=== PATIENT | male | born 1945 | race Caucasian/White ===

== ENCOUNTER 2018-11-20 13:14 | Inpatient (IN) ==
[2018-11-20] MEDS ORDERED: SODIUM CHLORIDE 0.9% 1,000 ML IV STA (13:34)
[2018-11-20] MEDS ORDERED: MEROPENEM 1,000 MG in SODIUM CHLORIDE 0.9% 100 ML IV STA (13:34)
[2018-11-20 14:32] LABS: Basophils # 0.1 10*3/uL (0.0-0.2); Hematocrit 30.1 VOL% (42.0-52.0); Hemoglobin 10.3 GM/DL (14.0-18.0); Immature Granulocytes % 5.9 %; Immature Granulocytes Absolute 0.46 #; Lymphocytes # 1.5 10*3/uL (1.4-4.0); Lymphocytes % 19.3 % (21.2-54.2); Mean Corpuscular HGB Conc 34.2 GM/DL (32-36); Mean Corpuscular Hemoglobin 32 PG (27-34); Mean Corpuscular Volume 93.2 FL (87-102); Mean Platelet Volume 10.3 FL (9.6-12.0); Monocytes # 1.3 10*3/uL (0.11-0.8); Monocytes % 16.1 % (1.7-12.7); NRBC # 0.03 10*3/uL; Neutrophils # 4.5 10*3/uL (1.4-7.4); Neutrophils % 57.7 % (38.7-73.9); Platelet Count 345 T/CUMM (130-400); Red Blood Count 3.23 MC/CUMM (3.8-5.5); Red Cell Distribution Width 14.6 % (9.3-17.3); White Blood Count 7.7 T/CUMM (4-12)
[2018-11-20 14:41] LABS: INR 1.1; PT Patient Result 11.6 SECS; Partial Thromboplastin Time 22.6 SECS (0-40)
[2018-11-20 15:00] LABS: Alanine Aminotransferase 19 U/L (16-61); Albumin 2.5 G/DL (3.4-5.0); Alkaline Phosphatase 66 U/L (45-117); Aspartate Amino Transferase 52 U/L (0-37); Blood Urea Nitrogen 118 MG/DL (7-18); Glucose 139 MG/DL (74-106); Osmolality,Calculated 294.2 MOS/KG (273-304); Sodium 127 MMOL/L (136-145); Total Protein 8.2 G/DL (6.4-8.3); Troponin I < 0.015 NG/ML (0.00-0.045)
[2018-11-20 15:06] LABS: Band Neutrophils 9 % (0-10); Lymphocytes 16 % (20-55); Myelocytes 1 %; Segmented Neutrophils 54 % (50-85)
[2018-11-20 15:07] LABS: Platelet Estimate Adequate; Total Cells Counted 100
[2018-11-20] MEDS ORDERED: ZALEPLON 5 MG CAPSULE PO PRN (15:40)
[2018-11-20] MEDS ORDERED: ONDANSETRON 4 MG/2 ML VIAL IV PRN (15:40)
[2018-11-20] MEDS ORDERED: PROCHLORPERAZINE 10 MG TABLET PO PRN (15:50)
[2018-11-20] MEDS ORDERED: NITROGLYCERIN SL 0.4 MG TABLET SL PRN (15:50)
[2018-11-20] MEDS ORDERED: GLUCAGON 1 MG VIAL IM PRN (15:53)
[2018-11-20] MEDS ORDERED: DEXTROSE 50% 25 GM/50 ML SYRINGE IV PRN (15:53)
[2018-11-20 16:27] LABS: Thyroid Stimulating Hormone 0.515 uIU/ml (0.358-3.74); VLDL CHOLESTEROL 72.8 MG/DL
[2018-11-20 16:49] LABS: Barbiturates Screen,Urine Negative (Negative); Benzodiazepines Screen,Urine Negative (Negative); Cannabinoid Screen,Urine Negative (Negative); Opiate Screen,Urine Negative (Negative); Phencyclidine Screen,Urine Negative (Negative)
[2018-11-20 16:51] LABS: Apearance,Urine Slightly Hazy (Clear); Bilirubin,Urine Negative (Negative); Blood, Urine Negative (Negative); Glucose,Urine (UA) Negative (Negative); Hyaline Casts,Urine 4 /LPF (0-3); Ketones,Urine Negative (Negative); Mucus,Urine Occasional /LPF (Occasional); Nitrite,Urine Negative (Negative); Protein,Urine Negative; RBC,Urine 1 /HPF (0-4); Squamous Epithelial Cell,Urine Occasional /HPF (0-10); Urine Color Amber (Yellow); Urine Specific Gravity 1.017 (1.001-1.035); Urine Urobilinogen < 2.0 EU/DL (0.2-1.0); WBC,Urine 1 /HPF (0-6)
[2018-11-20] MEDS: SODIUM CHLORIDE 0.9% 1,000 ML IV SCH ×2 (20:01→22:24)
[2018-11-20] MEDS: GEMFIBROZIL 600 MG TABLET PO SCH (20:02)
[2018-11-20] MEDS: INSULIN REGULAR 100 UNIT/ML SUBCUT SCH ×2 (20:02→20:30)
[2018-11-20] MEDS: CETIRIZINE 10 MG TABLET PO SCH (20:26)
[2018-11-20] MEDS: ROSUVASTATIN 20 MG TABLET PO SCH (20:26)
[2018-11-20] MEDS: ENOXAPARIN 30 MG/0.3 ML SYRINGE SUBCUT SCH (20:26)
[2018-11-20] MEDS: RANOLAZINE 500 MG TABLET PO SCH (20:26)
[2018-11-20] MEDS: FLUTICASONE 50 MCG NASAL SPRAY 16 GM BOTTLE BOTH NARES SCH (20:26)
[2018-11-20] MEDS: DOCUSATE SODIUM 100 MG CAPSULE PO SCH (20:27)
[2018-11-21 03:25] LABS: Albumin 2.3 G/DL (3.4-5.0); Bilirubin,Total 0.8 MG/DL (0.2-1.0); Calcium 7.2 MG/DL (8.5-10.1); Osmolality,Calculated 297.7 MOS/KG (273-304); Potassium 4.1 MMOL/L (3.5-5.1); Total Protein 7.3 G/DL (6.4-8.3)
[2018-11-21 03:40] LABS: Basophils # 0.1 10*3/uL (0.0-0.2); Basophils % 0.5 % (0.0-0.8); Hematocrit 26.1 VOL% (42.0-52.0); Hemoglobin 8.9 GM/DL (14.0-18.0); Immature Granulocytes % 4.7 %; Immature Granulocytes Absolute 0.44 #; Lymphocytes # 1.5 10*3/uL (1.4-4.0); Lymphocytes % 16.1 % (21.2-54.2); Mean Corpuscular HGB Conc 34.1 GM/DL (32-36); Mean Corpuscular Hemoglobin 32 PG (27-34); Mean Corpuscular Volume 94.2 FL (87-102); Mean Platelet Volume 10.6 FL (9.6-12.0); Monocytes # 1.4 10*3/uL (0.11-0.8); Monocytes % 14.4 % (1.7-12.7); NRBC # 0.04 10*3/uL; Neutrophils # 6.1 10*3/uL (1.4-7.4); Neutrophils % 64.3 % (38.7-73.9); Platelet Count 329 T/CUMM (130-400); Red Blood Count 2.77 MC/CUMM (3.8-5.5); Red Cell Distribution Width 14.7 % (9.3-17.3); White Blood Count 9.5 T/CUMM (4-12)
[2018-11-21] MEDS: SODIUM CHLORIDE 0.9% 1,000 ML IV SCH ×2 (06:04→18:54)
[2018-11-21] MEDS: INSULIN REGULAR 100 UNIT/ML SUBCUT SCH ×4 (08:23→20:59)
[2018-11-21] MEDS: ASPIRIN EC 81 MG TABLET PO SCH (12:24)
[2018-11-21] MEDS: GEMFIBROZIL 600 MG TABLET PO SCH ×2 (12:24→18:08)
[2018-11-21] MEDS: NEBIVOLOL 10 MG TABLET PO SCH (12:25)
[2018-11-21] MEDS: ISOSORBIDE MONONITRATE 60 MG TABLET PO SCH (12:25)
[2018-11-21] MEDS: CHOLECALCIFEROL 1,000 UNIT TABLET PO SCH (12:25)
[2018-11-21] MEDS: DOCUSATE SODIUM 100 MG CAPSULE PO SCH ×2 (12:25→20:58)
[2018-11-21] MEDS: MONTELUKAST 10 MG TABLET PO SCH (12:26)
[2018-11-21] MEDS: PANTOPRAZOLE 40 MG TABLET PO SCH (12:27)
[2018-11-21] MEDS: RANOLAZINE 500 MG TABLET PO SCH ×2 (12:27→20:59)
[2018-11-21] MEDS: FLUTICASONE 50 MCG NASAL SPRAY 16 GM BOTTLE BOTH NARES SCH ×2 (12:28→20:59)
[2018-11-21] MEDS: CLOPIDOGREL 75 MG TABLET PO SCH (12:28)
[2018-11-21] MEDS: ENOXAPARIN 30 MG/0.3 ML SYRINGE SUBCUT SCH (20:59)
[2018-11-21] MEDS: CETIRIZINE 10 MG TABLET PO SCH (20:59)
[2018-11-21] MEDS: ROSUVASTATIN 20 MG TABLET PO SCH (20:59)
[2018-11-22] MEDS: SODIUM CHLORIDE 0.9% 1,000 ML IV SCH ×3 (02:14→19:07)
[2018-11-22 04:52] LABS: Basophils % 0.4 % (0.0-0.8); Hematocrit 26.2 VOL% (42.0-52.0); Hemoglobin 8.9 GM/DL (14.0-18.0); Immature Granulocytes % 6.4 %; Lymphocytes # 1.2 10*3/uL (1.4-4.0); Mean Corpuscular Hemoglobin 32 PG (27-34); Mean Corpuscular Volume 95.3 FL (87-102); Mean Platelet Volume 10.5 FL (9.6-12.0); Monocytes # 0.9 10*3/uL (0.11-0.8); Monocytes % 8.1 % (1.7-12.7); NRBC # 0.02 10*3/uL; Neutrophils # 8.1 10*3/uL (1.4-7.4); Neutrophils % 74.1 % (38.7-73.9); Platelet Count 272 T/CUMM (130-400); Red Blood Count 2.75 MC/CUMM (3.8-5.5)
[2018-11-22 05:26] LABS: Band Neutrophils 1 % (0-10); Bilirubin,Total 0.6 MG/DL (0.2-1.0); Calcium 7.2 MG/DL (8.5-10.1); Hypochromasia Slight; Lymphocytes 10 % (20-55); Osmolality,Calculated 309.1 MOS/KG (273-304); Ovalocytes Slight; Platelet Estimate Adequate; Potassium 4.1 MMOL/L (3.5-5.1); Segmented Neutrophils 80 % (50-85); Total Cells Counted 100; Total Protein 6.8 G/DL (6.4-8.3)
[2018-11-22] MEDS: DOCUSATE SODIUM 100 MG CAPSULE PO SCH ×2 (08:05→20:26)
[2018-11-22] MEDS: NEBIVOLOL 10 MG TABLET PO SCH (08:05)
[2018-11-22] MEDS: ISOSORBIDE MONONITRATE 60 MG TABLET PO SCH (08:06)
[2018-11-22] MEDS: RANOLAZINE 500 MG TABLET PO SCH ×2 (08:06→20:26)
[2018-11-22] MEDS: CHOLECALCIFEROL 1,000 UNIT TABLET PO SCH (08:06)
[2018-11-22] MEDS: MONTELUKAST 10 MG TABLET PO SCH (08:06)
[2018-11-22] MEDS: CLOPIDOGREL 75 MG TABLET PO SCH (08:06)
[2018-11-22] MEDS: PANTOPRAZOLE 40 MG TABLET PO SCH (08:06)
[2018-11-22] MEDS: GEMFIBROZIL 600 MG TABLET PO SCH ×2 (08:07→19:06)
[2018-11-22] MEDS: ASPIRIN EC 81 MG TABLET PO SCH (08:07)
[2018-11-22] MEDS: INSULIN REGULAR 100 UNIT/ML SUBCUT SCH ×4 (09:43→20:26)
[2018-11-22] MEDS: FLUTICASONE 50 MCG NASAL SPRAY 16 GM BOTTLE BOTH NARES SCH ×2 (10:46→20:27)
[2018-11-22] MEDS: ENOXAPARIN 30 MG/0.3 ML SYRINGE SUBCUT SCH (20:26)
[2018-11-22] MEDS: ROSUVASTATIN 20 MG TABLET PO SCH (20:26)
[2018-11-22] MEDS: CETIRIZINE 10 MG TABLET PO SCH (20:26)
[2018-11-23] MEDS: SODIUM CHLORIDE 0.9% 1,000 ML IV SCH ×3 (02:14→18:53)
[2018-11-23 05:02] LABS: Basophils # 0.1 10*3/uL (0.0-0.2); Basophils % 0.5 % (0.0-0.8); Hematocrit 25.7 VOL% (42.0-52.0); Hemoglobin 8.5 GM/DL (14.0-18.0); Immature Granulocytes % 7.5 %; Immature Granulocytes Absolute 1.03 #; Lymphocytes # 1.1 10*3/uL (1.4-4.0); Lymphocytes % 8.2 % (21.2-54.2); Mean Corpuscular HGB Conc 33.1 GM/DL (32-36); Mean Corpuscular Hemoglobin 31 PG (27-34); Mean Corpuscular Volume 94.1 FL (87-102); Mean Platelet Volume 10.4 FL (9.6-12.0); Monocytes # 0.8 10*3/uL (0.11-0.8); Monocytes % 6.1 % (1.7-12.7); NRBC # 0.04 10*3/uL; Neutrophils # 10.7 10*3/uL (1.4-7.4); Neutrophils % 77.7 % (38.7-73.9); Platelet Count 267 T/CUMM (130-400); Red Blood Count 2.73 MC/CUMM (3.8-5.5); Red Cell Distribution Width 15.2 % (9.3-17.3); White Blood Count 13.8 T/CUMM (4-12)
[2018-11-23 05:07] LABS: Albumin 1.9 G/DL (3.4-5.0); Bilirubin,Total 0.7 MG/DL (0.2-1.0); Calcium 7.7 MG/DL (8.5-10.1); Potassium 3.9 MMOL/L (3.5-5.1); Total Protein 6.6 G/DL (6.4-8.3)
[2018-11-23 05:43] LABS: Band Neutrophils 5 % (0-10); Lymphocytes 9 % (20-55); Platelet Estimate Normal; Segmented Neutrophils 82 % (50-85); Total Cells Counted 100
[2018-11-23] MEDS: INSULIN REGULAR 100 UNIT/ML SUBCUT SCH ×4 (09:13→21:47)
[2018-11-23] MEDS: NEBIVOLOL 10 MG TABLET PO SCH (09:14)
[2018-11-23] MEDS: RANOLAZINE 500 MG TABLET PO SCH ×2 (09:14→21:41)
[2018-11-23] MEDS: MONTELUKAST 10 MG TABLET PO SCH (09:14)
[2018-11-23] MEDS: CHOLECALCIFEROL 1,000 UNIT TABLET PO SCH (09:14)
[2018-11-23] MEDS: CLOPIDOGREL 75 MG TABLET PO SCH (09:15)
[2018-11-23] MEDS: ISOSORBIDE MONONITRATE 60 MG TABLET PO SCH (09:15)
[2018-11-23] MEDS: GEMFIBROZIL 600 MG TABLET PO SCH ×2 (09:15→16:53)
[2018-11-23] MEDS: FLUTICASONE 50 MCG NASAL SPRAY 16 GM BOTTLE BOTH NARES SCH ×2 (09:16→21:41)
[2018-11-23] MEDS: DOCUSATE SODIUM 100 MG CAPSULE PO SCH ×2 (09:16→21:41)
[2018-11-23] MEDS: PANTOPRAZOLE 40 MG TABLET PO SCH (09:20)
[2018-11-23] MEDS: ASPIRIN EC 81 MG TABLET PO SCH (09:20)
[2018-11-23] MEDS: ZINC OXIDE PASTE 113 GM TUBE TOP SCH ×2 (16:53→21:41)
[2018-11-23] MEDS: ENOXAPARIN 30 MG/0.3 ML SYRINGE SUBCUT SCH (21:41)
[2018-11-23] MEDS: ROSUVASTATIN 20 MG TABLET PO SCH (21:41)
[2018-11-23] MEDS: CETIRIZINE 10 MG TABLET PO SCH (21:41)
[2018-11-24 04:59] LABS: Basophils # 0.1 10*3/uL (0.0-0.2); Basophils % 0.4 % (0.0-0.8); Hematocrit 23.7 VOL% (42.0-52.0); Hemoglobin 7.7 GM/DL (14.0-18.0); Immature Granulocytes % 8.1 %; Immature Granulocytes Absolute 0.98 #; Lymphocytes # 1.1 10*3/uL (1.4-4.0); Lymphocytes % 9.2 % (21.2-54.2); Mean Corpuscular HGB Conc 32.5 GM/DL (32-36); Mean Corpuscular Hemoglobin 32 PG (27-34); Mean Corpuscular Volume 98.8 FL (87-102); Mean Platelet Volume 10.5 FL (9.6-12.0); Monocytes # 0.7 10*3/uL (0.11-0.8); Monocytes % 5.4 % (1.7-12.7); NRBC # 0.02 10*3/uL; Neutrophils # 9.3 10*3/uL (1.4-7.4); Neutrophils % 76.9 % (38.7-73.9); Platelet Count 245 T/CUMM (130-400); Red Cell Distribution Width 15.3 % (9.3-17.3); White Blood Count 12.2 T/CUMM (4-12)
[2018-11-24] MEDS: SODIUM CHLORIDE 0.9% 1,000 ML IV SCH ×3 (05:02→18:03)
[2018-11-24 05:14] LABS: Albumin 1.8 G/DL (3.4-5.0); Bilirubin,Total 0.4 MG/DL (0.2-1.0); Calcium 8.2 MG/DL (8.5-10.1); Osmolality,Calculated 301.7 MOS/KG (273-304); Potassium 3.8 MMOL/L (3.5-5.1); Total Protein 6.4 G/DL (6.4-8.3)
[2018-11-24 05:23] LABS: Band Neutrophils 4 % (0-10); Hypochromasia Slight; Lymphocytes 6 % (20-55); Nucleated Red Blood Cells 1 (0-5); Ovalocytes Slight; Platelet Estimate Adequate; Segmented Neutrophils 84 % (50-85); Total Cells Counted 100
[2018-11-24 05:24] LABS: Microcytosis Slight
[2018-11-24] MEDS ORDERED: SODIUM CHLORIDE 0.9% 1,000 ML IV PRN ×2 (07:29)
[2018-11-24] MEDS: INSULIN REGULAR 100 UNIT/ML SUBCUT SCH ×4 (08:00→21:46)
[2018-11-24] MEDS: GEMFIBROZIL 600 MG TABLET PO SCH ×2 (11:02→18:39)
[2018-11-24] MEDS: CHOLECALCIFEROL 1,000 UNIT TABLET PO SCH (11:02)
[2018-11-24] MEDS: ASPIRIN EC 81 MG TABLET PO SCH (11:02)
[2018-11-24] MEDS: MONTELUKAST 10 MG TABLET PO SCH (11:02)
[2018-11-24] MEDS: RANOLAZINE 500 MG TABLET PO SCH ×2 (11:02→21:42)
[2018-11-24] MEDS: DOCUSATE SODIUM 100 MG CAPSULE PO SCH ×2 (11:02→21:42)
[2018-11-24] MEDS: ISOSORBIDE MONONITRATE 60 MG TABLET PO SCH (11:03)
[2018-11-24] MEDS: NEBIVOLOL 10 MG TABLET PO SCH (11:03)
[2018-11-24] MEDS: PANTOPRAZOLE 40 MG TABLET PO SCH (11:03)
[2018-11-24] MEDS: ZINC OXIDE PASTE 113 GM TUBE TOP SCH ×2 (11:03→21:42)
[2018-11-24] MEDS: CLOPIDOGREL 75 MG TABLET PO SCH (11:03)
[2018-11-24] MEDS: FLUTICASONE 50 MCG NASAL SPRAY 16 GM BOTTLE BOTH NARES SCH ×2 (11:04→21:42)
[2018-11-24] MEDS: CETIRIZINE 10 MG TABLET PO SCH (21:42)
[2018-11-24] MEDS: ENOXAPARIN 30 MG/0.3 ML SYRINGE SUBCUT SCH (21:42)
[2018-11-24] MEDS: ROSUVASTATIN 20 MG TABLET PO SCH (21:42)
[2018-11-24] MEDS ORDERED: MYLANTA/LIDO VISC/NYST 180 ML BOTTLE SWISH/SWAL PRN (22:22)
[2018-11-24] MEDS ORDERED: PHENOL 1.4% THROAT SPRAY 177 ML BOTTLE PO PRN (22:25)
[2018-11-25] MEDS: SODIUM CHLORIDE 0.9% 1,000 ML IV SCH ×2 (01:58→23:35)
[2018-11-25 04:18] LABS: Calcium 8.3 MG/DL (8.5-10.1); Osmolality,Calculated 295.7 MOS/KG (273-304); Potassium 3.8 MMOL/L (3.5-5.1)
[2018-11-25 06:56] LABS: Basophils % 0.4 % (0.0-0.8); Hematocrit 29.6 VOL% (42.0-52.0); Hemoglobin 9.8 GM/DL (14.0-18.0); Immature Granulocytes % 7.5 %; Immature Granulocytes Absolute 0.83 #; Lymphocytes # 0.8 10*3/uL (1.4-4.0); Lymphocytes % 7.6 % (21.2-54.2); Mean Corpuscular HGB Conc 33.1 GM/DL (32-36); Mean Corpuscular Hemoglobin 32 PG (27-34); Mean Corpuscular Volume 95.2 FL (87-102); Mean Platelet Volume 10.6 FL (9.6-12.0); Monocytes # 0.6 10*3/uL (0.11-0.8); Monocytes % 5.2 % (1.7-12.7); NRBC # 0.04 10*3/uL; Neutrophils # 8.8 10*3/uL (1.4-7.4); Neutrophils % 79.3 % (38.7-73.9); Platelet Count 228 T/CUMM (130-400); Red Blood Count 3.11 MC/CUMM (3.8-5.5); Red Cell Distribution Width 15.5 % (9.3-17.3); White Blood Count 11.1 T/CUMM (4-12)
[2018-11-25 07:16] LABS: Band Neutrophils 3 % (0-10); Hypochromasia 1+; Lymphocytes 7 % (20-55); Nucleated Red Blood Cells 1 (0-5); Platelet Estimate Adequate; Segmented Neutrophils 82 % (50-85); Total Cells Counted 100
[2018-11-25 07:17] LABS: Microcytosis Slight; Ovalocytes Slight
[2018-11-25] MEDS: DOCUSATE SODIUM 100 MG CAPSULE PO SCH ×2 (08:05→21:03)
[2018-11-25] MEDS: ZINC OXIDE PASTE 113 GM TUBE TOP SCH ×2 (09:00→21:17)
[2018-11-25] MEDS: INSULIN REGULAR 100 UNIT/ML SUBCUT SCH ×3 (13:30→21:18)
[2018-11-25] MEDS: CHOLECALCIFEROL 1,000 UNIT TABLET PO SCH (13:31)
[2018-11-25] MEDS: PANTOPRAZOLE 40 MG TABLET PO SCH (13:31)
[2018-11-25] MEDS: ASPIRIN EC 81 MG TABLET PO SCH (13:31)
[2018-11-25] MEDS: CLOPIDOGREL 75 MG TABLET PO SCH (13:31)
[2018-11-25] MEDS: GEMFIBROZIL 600 MG TABLET PO SCH ×2 (13:31→16:17)
[2018-11-25] MEDS: MONTELUKAST 10 MG TABLET PO SCH (13:31)
[2018-11-25] MEDS: FLUTICASONE 50 MCG NASAL SPRAY 16 GM BOTTLE BOTH NARES SCH ×2 (13:33→21:05)
[2018-11-25] MEDS: NEBIVOLOL 10 MG TABLET PO SCH (18:58)
[2018-11-25] MEDS: ISOSORBIDE MONONITRATE 60 MG TABLET PO SCH (18:59)
[2018-11-25] MEDS: RANOLAZINE 500 MG TABLET PO SCH ×2 (19:00→21:05)
[2018-11-25] MEDS: ENOXAPARIN 30 MG/0.3 ML SYRINGE SUBCUT SCH (21:05)
[2018-11-25] MEDS: ROSUVASTATIN 20 MG TABLET PO SCH (21:05)
[2018-11-25] MEDS: CETIRIZINE 10 MG TABLET PO SCH (21:05)
[2018-11-26] MEDS: SODIUM CHLORIDE 0.9% 1,000 ML IV SCH ×2 (00:28→12:20)
[2018-11-26 04:27] LABS: Basophils # 0.1 10*3/uL (0.0-0.2); Basophils % 0.4 % (0.0-0.8); Hematocrit 30.8 VOL% (42.0-52.0); Immature Granulocytes % 5.4 %; Immature Granulocytes Absolute 0.75 #; Lymphocytes # 0.9 10*3/uL (1.4-4.0); Lymphocytes % 6.8 % (21.2-54.2); Mean Corpuscular HGB Conc 32.5 GM/DL (32-36); Mean Corpuscular Hemoglobin 31 PG (27-34); Mean Corpuscular Volume 96.6 FL (87-102); Mean Platelet Volume 10.5 FL (9.6-12.0); Monocytes # 0.8 10*3/uL (0.11-0.8); Monocytes % 6.1 % (1.7-12.7); NRBC # 0.02 10*3/uL; Neutrophils # 11.3 10*3/uL (1.4-7.4); Neutrophils % 81.3 % (38.7-73.9); Platelet Count 236 T/CUMM (130-400); Red Blood Count 3.19 MC/CUMM (3.8-5.5); Red Cell Distribution Width 15.5 % (9.3-17.3); White Blood Count 13.8 T/CUMM (4-12)
[2018-11-26 04:47] LABS: Calcium 8.7 MG/DL (8.5-10.1); Osmolality,Calculated 290.5 MOS/KG (273-304)
[2018-11-26 05:11] LABS: Lymphocytes 6 % (20-55); Metamyelocytes 1 %; Myelocytes 1 %; Segmented Neutrophils 80 % (50-85); Total Cells Counted 100
[2018-11-26 05:12] LABS: Hypochromasia Slight; Microcytosis Slight
[2018-11-26 05:13] LABS: Platelet Estimate Normal
[2018-11-26] MEDS ORDERED: ALBUTEROL 2.5 MG/3 ML NEB RESP TX PRN ×2 (09:13→10:14)
[2018-11-26 10:14] LABS: ABG Base Excess -11.6 MMOL/L (-2.5-2.5); ABG HCO3 12.5 MMOL/L (20-26); ABG Oxygen Saturation 96.5 % (95-100); ABG PCO2 23.6 MM HG (35-48); ABG PH 7.343 (7.35-7.45); ABG PO2 99.9 MM HG (80-95); ABG TCO2 13.3 MMOL/L (23-27)
[2018-11-26] MEDS: methylPREDNISolone SOD SUC 40 MG/1 ML VIAL IV SCH ×2 (12:05→21:30)
[2018-11-26] MEDS: ISOSORBIDE MONONITRATE 60 MG TABLET PO SCH (12:07)
[2018-11-26] MEDS: RANOLAZINE 500 MG TABLET PO SCH ×2 (12:07→21:28)
[2018-11-26] MEDS: ASPIRIN EC 81 MG TABLET PO SCH (12:07)
[2018-11-26] MEDS: NEBIVOLOL 10 MG TABLET PO SCH (12:07)
[2018-11-26] MEDS: MONTELUKAST 10 MG TABLET PO SCH (12:07)
[2018-11-26] MEDS: FLUTICASONE 50 MCG NASAL SPRAY 16 GM BOTTLE BOTH NARES SCH ×2 (12:08→21:29)
[2018-11-26] MEDS: CLOPIDOGREL 75 MG TABLET PO SCH (12:08)
[2018-11-26] MEDS: PANTOPRAZOLE 40 MG TABLET PO SCH (12:08)
[2018-11-26] MEDS: ZINC OXIDE PASTE 113 GM TUBE TOP SCH ×2 (12:08→21:29)
[2018-11-26] MEDS: INSULIN REGULAR 100 UNIT/ML SUBCUT SCH ×4 (12:26→21:29)
[2018-11-26] MEDS: GEMFIBROZIL 600 MG TABLET PO SCH ×2 (12:26→19:05)
[2018-11-26] MEDS: CHOLECALCIFEROL 1,000 UNIT TABLET PO SCH (12:26)
[2018-11-26] MEDS: DOCUSATE SODIUM 100 MG CAPSULE PO SCH ×2 (12:28→21:23)
[2018-11-26] MEDS: ENOXAPARIN 30 MG/0.3 ML SYRINGE SUBCUT SCH (21:28)
[2018-11-26] MEDS: ROSUVASTATIN 20 MG TABLET PO SCH (21:28)
[2018-11-26] MEDS: CETIRIZINE 10 MG TABLET PO SCH (21:30)
[2018-11-27 04:30] LABS: Basophils % 0.1 % (0.0-0.8); Hematocrit 27.9 VOL% (42.0-52.0); Hemoglobin 9.2 GM/DL (14.0-18.0); Immature Granulocytes Absolute 0.66 #; Lymphocytes # 0.7 10*3/uL (1.4-4.0); Mean Corpuscular Hemoglobin 32 PG (27-34); Mean Corpuscular Volume 95.9 FL (87-102); Mean Platelet Volume 10.7 FL (9.6-12.0); Monocytes # 0.3 10*3/uL (0.11-0.8); Monocytes % 1.1 % (1.7-12.7); NRBC # 0.02 10*3/uL; Neutrophils # 20.4 10*3/uL (1.4-7.4); Neutrophils % 92.8 % (38.7-73.9); Platelet Count 230 T/CUMM (130-400); Red Blood Count 2.91 MC/CUMM (3.8-5.5); Red Cell Distribution Width 15.5 % (9.3-17.3)
[2018-11-27 05:04] LABS: Albumin 1.9 G/DL (3.4-5.0); Bilirubin,Total 1.1 MG/DL (0.2-1.0); Calcium 8.8 MG/DL (8.5-10.1); Osmolality,Calculated 297.3 MOS/KG (273-304); Potassium 4.4 MMOL/L (3.5-5.1); Total Protein 6.4 G/DL (6.4-8.3)
[2018-11-27 05:37] LABS: Hypochromasia Slight; Lymphocytes 2 % (20-55); Platelet Estimate Normal; Segmented Neutrophils 98 % (50-85); Total Cells Counted 100
[2018-11-27] MEDS: RANOLAZINE 500 MG TABLET PO SCH ×2 (08:54→21:46)
[2018-11-27] MEDS: GEMFIBROZIL 600 MG TABLET PO SCH ×2 (08:54→17:47)
[2018-11-27] MEDS: ASPIRIN EC 81 MG TABLET PO SCH (08:54)
[2018-11-27] MEDS: CHOLECALCIFEROL 1,000 UNIT TABLET PO SCH (08:54)
[2018-11-27] MEDS: MONTELUKAST 10 MG TABLET PO SCH (08:54)
[2018-11-27] MEDS: ISOSORBIDE MONONITRATE 60 MG TABLET PO SCH (08:54)
[2018-11-27] MEDS: INSULIN REGULAR 100 UNIT/ML SUBCUT SCH ×4 (08:55→21:47)
[2018-11-27] MEDS: DOCUSATE SODIUM 100 MG CAPSULE PO SCH ×2 (08:55→21:48)
[2018-11-27] MEDS: PANTOPRAZOLE 40 MG TABLET PO SCH (08:55)
[2018-11-27] MEDS: NEBIVOLOL 10 MG TABLET PO SCH (08:55)
[2018-11-27] MEDS: CLOPIDOGREL 75 MG TABLET PO SCH (08:55)
[2018-11-27] MEDS: ZINC OXIDE PASTE 113 GM TUBE TOP SCH ×2 (08:56→21:47)
[2018-11-27] MEDS: FLUTICASONE 50 MCG NASAL SPRAY 16 GM BOTTLE BOTH NARES SCH ×2 (08:56→21:48)
[2018-11-27] MEDS: SODIUM CHLORIDE 0.9% 1,000 ML IV SCH ×2 (09:01→22:50)
[2018-11-27] MEDS: methylPREDNISolone SOD SUC 40 MG/1 ML VIAL IV SCH ×2 (12:17→21:49)
[2018-11-27] MEDS: CETIRIZINE 10 MG TABLET PO SCH (21:46)
[2018-11-27] MEDS: ROSUVASTATIN 20 MG TABLET PO SCH (21:46)
[2018-11-27] MEDS: ENOXAPARIN 30 MG/0.3 ML SYRINGE SUBCUT SCH (21:47)
[2018-11-28 05:42] LABS: Basophils % 0.1 % (0.0-0.8); Hematocrit 27.9 VOL% (42.0-52.0); Hemoglobin 9.2 GM/DL (14.0-18.0); Immature Granulocytes % 0.9 %; Immature Granulocytes Absolute 0.22 #; Lymphocytes # 0.7 10*3/uL (1.4-4.0); Lymphocytes % 2.7 % (21.2-54.2); Mean Corpuscular Hemoglobin 32 PG (27-34); Mean Corpuscular Volume 96.2 FL (87-102); Mean Platelet Volume 10.7 FL (9.6-12.0); Monocytes # 0.7 10*3/uL (0.11-0.8); Monocytes % 2.8 % (1.7-12.7); Neutrophils # 22.2 10*3/uL (1.4-7.4); Neutrophils % 93.5 % (38.7-73.9); Platelet Count 253 T/CUMM (130-400); Red Cell Distribution Width 15.9 % (9.3-17.3); White Blood Count 23.8 T/CUMM (4-12)
[2018-11-28 06:11] LABS: Calcium 8.3 MG/DL (8.5-10.1); Osmolality,Calculated 289.7 MOS/KG (273-304); Potassium 4.5 MMOL/L (3.5-5.1); Total Protein 6.3 G/DL (6.4-8.3)
[2018-11-28 06:21] LABS: Band Neutrophils 1 % (0-10); Lymphocytes 2 % (20-55); Platelet Estimate Normal; Segmented Neutrophils 93 % (50-85); Total Cells Counted 100
[2018-11-28] MEDS: CLOPIDOGREL 75 MG TABLET PO SCH (09:47)
[2018-11-28] MEDS: MONTELUKAST 10 MG TABLET PO SCH (09:47)
[2018-11-28] MEDS: RANOLAZINE 500 MG TABLET PO SCH ×2 (09:47→20:34)
[2018-11-28] MEDS: CHOLECALCIFEROL 1,000 UNIT TABLET PO SCH (09:48)
[2018-11-28] MEDS: NEBIVOLOL 10 MG TABLET PO SCH (09:48)
[2018-11-28] MEDS: GEMFIBROZIL 600 MG TABLET PO SCH ×2 (09:48→17:31)
[2018-11-28] MEDS: ISOSORBIDE MONONITRATE 60 MG TABLET PO SCH (09:48)
[2018-11-28] MEDS: DOCUSATE SODIUM 100 MG CAPSULE PO SCH ×2 (09:48→20:34)
[2018-11-28] MEDS: ASPIRIN EC 81 MG TABLET PO SCH (09:48)
[2018-11-28] MEDS: INSULIN REGULAR 100 UNIT/ML SUBCUT SCH ×4 (09:49→21:38)
[2018-11-28] MEDS: PANTOPRAZOLE 40 MG TABLET PO SCH (09:49)
[2018-11-28] MEDS: ZINC OXIDE PASTE 113 GM TUBE TOP SCH ×2 (09:49→20:35)
[2018-11-28] MEDS: ENOXAPARIN 40 MG/0.4 ML SYRINGE SUBCUT SCH (09:49)
[2018-11-28] MEDS: FLUTICASONE 50 MCG NASAL SPRAY 16 GM BOTTLE BOTH NARES SCH ×2 (09:50→20:35)
[2018-11-28] MEDS: SODIUM CHLORIDE 0.9% 1,000 ML IV SCH ×2 (09:50→12:06)
[2018-11-28] MEDS: ROSUVASTATIN 20 MG TABLET PO SCH (20:34)
[2018-11-28] MEDS: CETIRIZINE 10 MG TABLET PO SCH (20:34)
[2018-11-29] MEDS: SODIUM CHLORIDE 0.9% 1,000 ML IV SCH ×3 (01:55→13:33)
[2018-11-29 05:42] LABS: Basophils # 0.1 10*3/uL (0.0-0.2); Basophils % 0.2 % (0.0-0.8); Hematocrit 30.9 VOL% (42.0-52.0); Hemoglobin 9.8 GM/DL (14.0-18.0); Immature Granulocytes % 1.4 %; Immature Granulocytes Absolute 0.45 #; Lymphocytes # 0.8 10*3/uL (1.4-4.0); Lymphocytes % 2.5 % (21.2-54.2); Mean Corpuscular HGB Conc 31.7 GM/DL (32-36); Mean Corpuscular Hemoglobin 31 PG (27-34); Mean Corpuscular Volume 98.1 FL (87-102); Mean Platelet Volume 10.7 FL (9.6-12.0); Monocytes # 1.4 10*3/uL (0.11-0.8); Monocytes % 4.3 % (1.7-12.7); Neutrophils # 29.9 10*3/uL (1.4-7.4); Neutrophils % 91.6 % (38.7-73.9); Platelet Count 267 T/CUMM (130-400); Red Blood Count 3.15 MC/CUMM (3.8-5.5); Red Cell Distribution Width 16.1 % (9.3-17.3); White Blood Count 32.6 T/CUMM (4-12)
[2018-11-29 06:04] LABS: Bilirubin,Total 1.1 MG/DL (0.2-1.0); Calcium 8.8 MG/DL (8.5-10.1); Osmolality,Calculated 282.8 MOS/KG (273-304); Potassium 4.4 MMOL/L (3.5-5.1); Total Protein 6.5 G/DL (6.4-8.3)
[2018-11-29 06:56] LABS: Anisocytosis 1+; Lymphocytes 2 % (20-55); Segmented Neutrophils 96 % (50-85); Total Cells Counted 100
[2018-11-29 06:57] LABS: Platelet Estimate Adequate
[2018-11-29] MEDS: INSULIN REGULAR 100 UNIT/ML SUBCUT SCH ×4 (07:56→21:10)
[2018-11-29] MEDS: NEBIVOLOL 10 MG TABLET PO SCH (08:48)
[2018-11-29] MEDS: RANOLAZINE 500 MG TABLET PO SCH ×2 (08:48→21:44)
[2018-11-29] MEDS: ENOXAPARIN 40 MG/0.4 ML SYRINGE SUBCUT SCH (08:49)
[2018-11-29] MEDS: GEMFIBROZIL 600 MG TABLET PO SCH ×2 (08:49→17:32)
[2018-11-29] MEDS: PANTOPRAZOLE 40 MG TABLET PO SCH (08:49)
[2018-11-29] MEDS: MONTELUKAST 10 MG TABLET PO SCH (08:49)
[2018-11-29] MEDS: ASPIRIN EC 81 MG TABLET PO SCH (08:49)
[2018-11-29] MEDS: ISOSORBIDE MONONITRATE 60 MG TABLET PO SCH (08:49)
[2018-11-29] MEDS: CLOPIDOGREL 75 MG TABLET PO SCH (08:49)
[2018-11-29] MEDS: ZINC OXIDE PASTE 113 GM TUBE TOP SCH ×2 (08:49→21:45)
[2018-11-29] MEDS: CHOLECALCIFEROL 1,000 UNIT TABLET PO SCH (08:49)
[2018-11-29] MEDS: FLUTICASONE 50 MCG NASAL SPRAY 16 GM BOTTLE BOTH NARES SCH ×2 (08:50→21:45)
[2018-11-29] MEDS: DOCUSATE SODIUM 100 MG CAPSULE PO SCH ×2 (08:51→21:45)
[2018-11-29] MEDS: SODIUM BICARB INJ 100 MEQ in STERILE WATER INJ 1,000 ML IV SCH (15:45)
[2018-11-29] MEDS ORDERED: SUCCINYLCHOLINE 200 MG/10 ML VIAL ONE (16:07)
[2018-11-29] MEDS ORDERED: ETOMIDATE 40 MG/20 ML VIAL IV ONE (16:07)
[2018-11-29] MEDS: PROPOFOL 1,000 MG/100 ML BOTTLE IV SCH ×2 (16:10→21:08)
[2018-11-29 16:33] LABS: ABG Base Excess -9.7 MMOL/L (-2.5-2.5); ABG HCO3 16.6 MMOL/L (20-26); ABG PCO2 38.8 MM HG (35-48); ABG PH 7.249 (7.35-7.45); ABG TCO2 15.7 MMOL/L (23-27)
[2018-11-29] MEDS: MEROPENEM 500 MG in SODIUM CHLORIDE 0.9% 100 ML IV SCH (17:08)
[2018-11-29] MEDS: PIPERACILLIN/TAZOBACTAM 3,375 MG in SODIUM CHLORIDE 0.9% 100 ML IV SCH ×2 (17:42→23:42)
[2018-11-29] MEDS: ROSUVASTATIN 20 MG TABLET PO SCH (21:44)
[2018-11-29] MEDS: CETIRIZINE 10 MG TABLET PO SCH (21:47)
[2018-11-30] MEDS: PROPOFOL 1,000 MG/100 ML BOTTLE IV SCH ×6 (01:29→22:23)
[2018-11-30] MEDS: MEROPENEM 500 MG in SODIUM CHLORIDE 0.9% 100 ML IV SCH ×2 (04:50→17:06)
[2018-11-30 05:33] LABS: Basophils % 0.1 % (0.0-0.8); Hematocrit 26.9 VOL% (42.0-52.0); Hemoglobin 8.7 GM/DL (14.0-18.0); Immature Granulocytes % 1.3 %; Immature Granulocytes Absolute 0.35 #; Lymphocytes # 0.5 10*3/uL (1.4-4.0); Lymphocytes % 1.7 % (21.2-54.2); Mean Corpuscular HGB Conc 32.3 GM/DL (32-36); Mean Corpuscular Hemoglobin 31 PG (27-34); Mean Corpuscular Volume 96.1 FL (87-102); Mean Platelet Volume 10.6 FL (9.6-12.0); Monocytes # 0.9 10*3/uL (0.11-0.8); Monocytes % 3.4 % (1.7-12.7); Neutrophils # 26.1 10*3/uL (1.4-7.4); Neutrophils % 93.5 % (38.7-73.9); Platelet Count 222 T/CUMM (130-400); Red Cell Distribution Width 15.9 % (9.3-17.3); White Blood Count 27.9 T/CUMM (4-12)
[2018-11-30 05:47] LABS: Albumin 1.6 G/DL (3.4-5.0); Bilirubin,Total 0.5 MG/DL (0.2-1.0); Calcium 8.1 MG/DL (8.5-10.1); Osmolality,Calculated 283.5 MOS/KG (273-304); Potassium 3.8 MMOL/L (3.5-5.1); Total Protein 5.5 G/DL (6.4-8.3)
[2018-11-30 06:06] LABS: Band Neutrophils 1 % (0-10); Hypochromasia 1+; Lymphocytes 1 % (20-55); Ovalocytes Slight; Platelet Estimate Adequate; Segmented Neutrophils 96 % (50-85); Total Cells Counted 100
[2018-11-30] MEDS: INSULIN REGULAR 100 UNIT/ML SUBCUT SCH ×4 (08:24→20:20)
[2018-11-30] MEDS: ISOSORBIDE MONONITRATE 60 MG TABLET PO SCH (09:30)
[2018-11-30] MEDS: MONTELUKAST 10 MG TABLET PO SCH (09:30)
[2018-11-30] MEDS: PANTOPRAZOLE 40 MG TABLET PO SCH (09:31)
[2018-11-30] MEDS: GEMFIBROZIL 600 MG TABLET PO SCH ×2 (09:31→17:06)
[2018-11-30] MEDS: NEBIVOLOL 10 MG TABLET PO SCH (09:31)
[2018-11-30] MEDS: ENOXAPARIN 40 MG/0.4 ML SYRINGE SUBCUT SCH (09:33)
[2018-11-30] MEDS: CHOLECALCIFEROL 1,000 UNIT TABLET PO SCH (09:33)
[2018-11-30] MEDS: RANOLAZINE 500 MG TABLET PO SCH ×2 (09:33→20:52)
[2018-11-30] MEDS: FLUTICASONE 50 MCG NASAL SPRAY 16 GM BOTTLE BOTH NARES SCH ×2 (09:35→20:53)
[2018-11-30] MEDS: CLOPIDOGREL 75 MG TABLET PO SCH (09:35)
[2018-11-30] MEDS: DOCUSATE SODIUM 100 MG CAPSULE PO SCH ×2 (09:36→20:52)
[2018-11-30] MEDS: ZINC OXIDE PASTE 113 GM TUBE TOP SCH ×2 (09:38→20:52)
[2018-11-30] MEDS: PIPERACILLIN/TAZOBACTAM 3,375 MG in SODIUM CHLORIDE 0.9% 100 ML IV SCH (09:51)
[2018-11-30] MEDS: ASPIRIN EC 81 MG TABLET PO SCH (09:52)
[2018-11-30] MEDS: SODIUM BICARB INJ 100 MEQ in STERILE WATER INJ 1,000 ML IV SCH (13:17)
[2018-11-30] MEDS: CETIRIZINE 10 MG TABLET PO SCH (20:52)
[2018-11-30] MEDS: ROSUVASTATIN 20 MG TABLET PO SCH (20:52)
[2018-11-30] MEDS ORDERED: SODIUM CHLORIDE 0.9% 500 ML IV ONE (22:38)
[2018-12-01] MEDS: MEROPENEM 500 MG in SODIUM CHLORIDE 0.9% 100 ML IV SCH ×2 (04:32→16:40)
[2018-12-01 05:34] LABS: Basophils % 0.1 % (0.0-0.8); Eosinophils % 0.1 % (0.00-10.9); Hematocrit 27.2 VOL% (42.0-52.0); Hemoglobin 8.8 GM/DL (14.0-18.0); Immature Granulocytes % 0.6 %; Immature Granulocytes Absolute 0.13 #; Lymphocytes # 0.9 10*3/uL (1.4-4.0); Lymphocytes % 4.1 % (21.2-54.2); Mean Corpuscular HGB Conc 32.4 GM/DL (32-36); Mean Corpuscular Hemoglobin 31 PG (27-34); Mean Corpuscular Volume 96.8 FL (87-102); Mean Platelet Volume 10.6 FL (9.6-12.0); Monocytes # 0.8 10*3/uL (0.11-0.8); Monocytes % 3.8 % (1.7-12.7); Neutrophils # 18.7 10*3/uL (1.4-7.4); Neutrophils % 91.3 % (38.7-73.9); Platelet Count 215 T/CUMM (130-400); Red Blood Count 2.81 MC/CUMM (3.8-5.5); White Blood Count 20.5 T/CUMM (4-12)
[2018-12-01 06:03] LABS: Albumin 1.6 G/DL (3.4-5.0); Bilirubin,Total 1.6 MG/DL (0.2-1.0); Calcium 8.1 MG/DL (8.5-10.1); Osmolality,Calculated 283.4 MOS/KG (273-304); Potassium 3.8 MMOL/L (3.5-5.1); Total Protein 5.5 G/DL (6.4-8.3)
[2018-12-01 06:16] LABS: Lymphocytes 2 % (20-55); Segmented Neutrophils 97 % (50-85); Total Cells Counted 100
[2018-12-01 06:17] LABS: Microcytosis 1+
[2018-12-01 06:18] LABS: Ovalocytes Slight; Platelet Estimate Normal
[2018-12-01] MEDS: PROPOFOL 1,000 MG/100 ML BOTTLE IV SCH (06:33)
[2018-12-01 06:45] LABS: ABG Base Excess -6.1 MMOL/L (-2.5-2.5); ABG HCO3 17.8 MMOL/L (20-26); ABG Oxygen Saturation 98.3 % (95-100); ABG PCO2 29.7 MM HG (35-48); ABG PH 7.395 (7.35-7.45); ABG PO2 194.7 MM HG (80-95); ABG TCO2 18.7 MMOL/L (23-27)
[2018-12-01] MEDS: INSULIN REGULAR 100 UNIT/ML SUBCUT SCH ×4 (08:54→20:39)
[2018-12-01] MEDS: MONTELUKAST 10 MG TABLET PO SCH (09:07)
[2018-12-01] MEDS: LANSOPRAZOLE ODT 30 MG TABLET PER TUBE SCH (09:07)
[2018-12-01] MEDS: NEBIVOLOL 10 MG TABLET PO SCH (09:08)
[2018-12-01] MEDS: ISOSORBIDE MONONITRATE 60 MG TABLET PO SCH (09:08)
[2018-12-01] MEDS: DOCUSATE SODIUM 100 MG CAPSULE PO SCH ×2 (09:09→21:33)
[2018-12-01] MEDS: ASPIRIN CHEW 81 MG TABLET PO SCH (09:09)
[2018-12-01] MEDS: CHOLECALCIFEROL 1,000 UNIT TABLET PO SCH (09:09)
[2018-12-01] MEDS: CLOPIDOGREL 75 MG TABLET PO SCH (09:09)
[2018-12-01] MEDS: RANOLAZINE 500 MG TABLET PO SCH ×2 (09:10→21:33)
[2018-12-01] MEDS: ZINC OXIDE PASTE 113 GM TUBE TOP SCH ×2 (09:10→21:38)
[2018-12-01] MEDS: FLUTICASONE 50 MCG NASAL SPRAY 16 GM BOTTLE BOTH NARES SCH ×2 (09:11→21:38)
[2018-12-01] MEDS: GEMFIBROZIL 600 MG TABLET PO SCH ×2 (09:15→17:03)
[2018-12-01] MEDS: SODIUM BICARB INJ 100 MEQ in STERILE WATER INJ 1,000 ML IV SCH (11:35)
[2018-12-01] MEDS ORDERED: MAGNESIUM SULF RIDER 2 GM in PREMIX 1 EACH IV ONE (15:26)
[2018-12-01] MEDS ORDERED: BENZOCAINE/MENTHOL LOZENGE 18/BOX PO PRN (15:53)
[2018-12-01] MEDS ORDERED: VANCOMYCIN INJ 1,500 MG in SODIUM CHLORIDE 0.9% 500 ML IV SCH (17:00)
[2018-12-01] MEDS: CETIRIZINE 10 MG TABLET PO SCH (21:33)
[2018-12-01] MEDS: ROSUVASTATIN 20 MG TABLET PO SCH (21:33)
[2018-12-02] MEDS: MEROPENEM 500 MG in SODIUM CHLORIDE 0.9% 100 ML IV SCH ×2 (04:00→17:39)
[2018-12-02 05:50] LABS: Basophils % 0.3 % (0.0-0.8); Eosinophils # 0.1 10*3/uL (0.0-0.87); Eosinophils % 0.5 % (0.00-10.9); Hematocrit 24.4 VOL% (42.0-52.0); Immature Granulocytes % 0.7 %; Immature Granulocytes Absolute 0.08 #; Lymphocytes # 0.9 10*3/uL (1.4-4.0); Lymphocytes % 7.3 % (21.2-54.2); Mean Corpuscular HGB Conc 32.8 GM/DL (32-36); Mean Corpuscular Hemoglobin 31 PG (27-34); Mean Corpuscular Volume 95.7 FL (87-102); Mean Platelet Volume 10.5 FL (9.6-12.0); Monocytes # 0.8 10*3/uL (0.11-0.8); Monocytes % 6.6 % (1.7-12.7); Neutrophils % 84.6 % (38.7-73.9); Platelet Count 230 T/CUMM (130-400); Red Blood Count 2.55 MC/CUMM (3.8-5.5); Red Cell Distribution Width 15.7 % (9.3-17.3); White Blood Count 11.9 T/CUMM (4-12)
[2018-12-02 06:06] LABS: Calcium 7.9 MG/DL (8.5-10.1); Osmolality,Calculated 281.5 MOS/KG (273-304); Potassium 3.3 MMOL/L (3.5-5.1)
[2018-12-02 06:09] LABS: Albumin 1.5 G/DL (3.4-5.0); Bilirubin,Total 0.7 MG/DL (0.2-1.0); Osmolality,Calculated 283.4 MOS/KG (273-304); Potassium 3.3 MMOL/L (3.5-5.1); Total Protein 5.3 G/DL (6.4-8.3)
[2018-12-02] MEDS: GEMFIBROZIL 600 MG TABLET PO SCH ×2 (06:37→17:42)
[2018-12-02] MEDS ORDERED: SODIUM CHLORIDE 0.9% 1,000 ML IV PRN (07:37)
[2018-12-02] MEDS ORDERED: POTASSIUM CHLORIDE 20 MEQ TABLET PO ONE (08:11)
[2018-12-02] MEDS: SODIUM BICARB INJ 100 MEQ in STERILE WATER INJ 1,000 ML IV SCH (08:46)
[2018-12-02] MEDS: CHOLECALCIFEROL 1,000 UNIT TABLET PO SCH (08:47)
[2018-12-02] MEDS: MONTELUKAST 10 MG TABLET PO SCH (08:47)
[2018-12-02] MEDS: CLOPIDOGREL 75 MG TABLET PO SCH (08:47)
[2018-12-02] MEDS: ISOSORBIDE MONONITRATE 60 MG TABLET PO SCH (08:47)
[2018-12-02] MEDS: RANOLAZINE 500 MG TABLET PO SCH ×2 (08:47→21:20)
[2018-12-02] MEDS: LANSOPRAZOLE ODT 30 MG TABLET PER TUBE SCH (08:47)
[2018-12-02] MEDS: DEXT 5% NACL 0.45% KCL 40 MEQ 40 MEQ/1,000 ML BAG IV SCH ×2 (08:47→21:32)
[2018-12-02] MEDS: MAGNESIUM CHLORIDE 64 MG TABLET PO SCH (08:47)
[2018-12-02] MEDS: INSULIN REGULAR 100 UNIT/ML SUBCUT SCH ×4 (08:48→21:33)
[2018-12-02] MEDS: ASPIRIN CHEW 81 MG TABLET PO SCH (08:48)
[2018-12-02] MEDS: ASCORBIC ACID 500 MG TABLET PO SCH ×2 (08:48→21:21)
[2018-12-02] MEDS: DOCUSATE SODIUM 100 MG CAPSULE PO SCH ×2 (08:49→20:21)
[2018-12-02] MEDS: ZINC OXIDE PASTE 113 GM TUBE TOP SCH ×2 (08:50→21:22)
[2018-12-02] MEDS: FLUTICASONE 50 MCG NASAL SPRAY 16 GM BOTTLE BOTH NARES SCH ×2 (08:59→21:23)
[2018-12-02] MEDS: METOPROLOL TARTRATE 25 MG TABLET PO SCH ×2 (09:58→20:24)
[2018-12-02] MEDS: ALBUTEROL/IPRATROPIUM 3 ML NEB RESP TX SCH ×2 (12:50→19:39)
[2018-12-02] MEDS: CETIRIZINE 10 MG TABLET PO SCH (21:21)
[2018-12-03] MEDS: ALBUTEROL/IPRATROPIUM 3 ML NEB RESP TX SCH ×4 (00:07→17:45)
[2018-12-03] MEDS: SODIUM BICARB INJ 100 MEQ in STERILE WATER INJ 1,000 ML IV SCH (03:08)
[2018-12-03] MEDS: MEROPENEM 500 MG in SODIUM CHLORIDE 0.9% 100 ML IV SCH ×2 (04:12→15:52)
[2018-12-03 06:03] LABS: Basophils % 0.4 % (0.0-0.8); Eosinophils # 0.1 10*3/uL (0.0-0.87); Hematocrit 30.8 VOL% (42.0-52.0); Hemoglobin 9.9 GM/DL (14.0-18.0); Immature Granulocytes % 0.9 %; Immature Granulocytes Absolute 0.07 #; Lymphocytes # 0.9 10*3/uL (1.4-4.0); Lymphocytes % 11.3 % (21.2-54.2); Mean Corpuscular HGB Conc 32.1 GM/DL (32-36); Mean Corpuscular Hemoglobin 31 PG (27-34); Mean Corpuscular Volume 97.2 FL (87-102); Mean Platelet Volume 10.5 FL (9.6-12.0); Monocytes # 0.9 10*3/uL (0.11-0.8); Monocytes % 11.4 % (1.7-12.7); Neutrophils # 5.8 10*3/uL (1.4-7.4); Platelet Count 210 T/CUMM (130-400); Red Blood Count 3.17 MC/CUMM (3.8-5.5); Red Cell Distribution Width 15.3 % (9.3-17.3); White Blood Count 7.8 T/CUMM (4-12)
[2018-12-03 06:21] LABS: Albumin 1.6 G/DL (3.4-5.0); Bilirubin,Total 1.4 MG/DL (0.2-1.0); Calcium 8.2 MG/DL (8.5-10.1); Osmolality,Calculated 284.4 MOS/KG (273-304); Potassium 3.8 MMOL/L (3.5-5.1); Total Protein 5.7 G/DL (6.4-8.3)
[2018-12-03] MEDS: RANOLAZINE 500 MG TABLET PO SCH ×2 (08:57→20:09)
[2018-12-03] MEDS: METOPROLOL TARTRATE 25 MG TABLET PO SCH ×2 (08:58→20:09)
[2018-12-03] MEDS: ASPIRIN CHEW 81 MG TABLET PO SCH (08:58)
[2018-12-03] MEDS: CLOPIDOGREL 75 MG TABLET PO SCH (08:58)
[2018-12-03] MEDS: CHOLECALCIFEROL 1,000 UNIT TABLET PO SCH (08:58)
[2018-12-03] MEDS: GEMFIBROZIL 600 MG TABLET PO SCH ×2 (08:58→15:52)
[2018-12-03] MEDS: ASCORBIC ACID 500 MG TABLET PO SCH ×2 (08:58→20:09)
[2018-12-03] MEDS: ISOSORBIDE MONONITRATE 60 MG TABLET PO SCH (08:58)
[2018-12-03] MEDS: DOCUSATE SODIUM 100 MG CAPSULE PO SCH ×2 (08:58→20:11)
[2018-12-03] MEDS: MAGNESIUM CHLORIDE 64 MG TABLET PO SCH (08:58)
[2018-12-03] MEDS: MONTELUKAST 10 MG TABLET PO SCH (08:58)
[2018-12-03] MEDS: LANSOPRAZOLE ODT 30 MG TABLET PER TUBE SCH (08:58)
[2018-12-03] MEDS: INSULIN REGULAR 100 UNIT/ML SUBCUT SCH ×4 (08:59→20:07)
[2018-12-03] MEDS: FLUTICASONE 50 MCG NASAL SPRAY 16 GM BOTTLE BOTH NARES SCH ×2 (09:01→20:11)
[2018-12-03] MEDS: ZINC OXIDE PASTE 113 GM TUBE TOP SCH ×2 (09:01→20:12)
[2018-12-03] MEDS: DEXT 5% NACL 0.45% KCL 40 MEQ 40 MEQ/1,000 ML BAG IV SCH ×2 (11:31→21:49)
[2018-12-03] MEDS: CETIRIZINE 10 MG TABLET PO SCH (20:09)
[2018-12-04] MEDS: ALBUTEROL/IPRATROPIUM 3 ML NEB RESP TX SCH ×4 (00:37→19:38)
[2018-12-04] MEDS: MEROPENEM 500 MG in SODIUM CHLORIDE 0.9% 100 ML IV SCH ×2 (04:15→19:43)
[2018-12-04] MEDS: SODIUM BICARB INJ 100 MEQ in STERILE WATER INJ 1,000 ML IV SCH (04:15)
[2018-12-04 05:44] LABS: Albumin 1.6 G/DL (3.4-5.0); Calcium 7.9 MG/DL (8.5-10.1); Osmolality,Calculated 285.1 MOS/KG (273-304); Potassium 4.1 MMOL/L (3.5-5.1); Total Protein 5.5 G/DL (6.4-8.3)
[2018-12-04 07:45] LABS: Basophils % 0.6 % (0.0-0.8); Eosinophils # 0.1 10*3/uL (0.0-0.87); Eosinophils % 1.3 % (0.00-10.9); Hematocrit 30.5 VOL% (42.0-52.0); Hemoglobin 9.8 GM/DL (14.0-18.0); Immature Granulocytes % 0.8 %; Immature Granulocytes Absolute 0.04 #; Lymphocytes # 0.9 10*3/uL (1.4-4.0); Lymphocytes % 17.4 % (21.2-54.2); Mean Corpuscular HGB Conc 32.1 GM/DL (32-36); Mean Corpuscular Hemoglobin 31 PG (27-34); Mean Corpuscular Volume 97.4 FL (87-102); Mean Platelet Volume 10.3 FL (9.6-12.0); Monocytes # 0.7 10*3/uL (0.11-0.8); Monocytes % 13.1 % (1.7-12.7); Neutrophils # 3.6 10*3/uL (1.4-7.4); Neutrophils % 66.8 % (38.7-73.9); Platelet Count 203 T/CUMM (130-400); Red Blood Count 3.13 MC/CUMM (3.8-5.5); Red Cell Distribution Width 15.7 % (9.3-17.3); White Blood Count 5.3 T/CUMM (4-12)
[2018-12-04] MEDS: RANOLAZINE 500 MG TABLET PO SCH ×2 (13:56→21:47)
[2018-12-04] MEDS: ASPIRIN CHEW 81 MG TABLET PO SCH (13:57)
[2018-12-04] MEDS: ISOSORBIDE MONONITRATE 60 MG TABLET PO SCH (13:57)
[2018-12-04] MEDS: CHOLECALCIFEROL 1,000 UNIT TABLET PO SCH (13:57)
[2018-12-04] MEDS: LANSOPRAZOLE ODT 30 MG TABLET PER TUBE SCH (13:57)
[2018-12-04] MEDS: ASCORBIC ACID 500 MG TABLET PO SCH ×2 (13:57→21:48)
[2018-12-04] MEDS: DOCUSATE SODIUM 100 MG CAPSULE PO SCH ×2 (13:57→21:55)
[2018-12-04] MEDS: GEMFIBROZIL 600 MG TABLET PO SCH ×2 (13:57→19:43)
[2018-12-04] MEDS: NEBIVOLOL 5 MG TABLET PO SCH (13:57)
[2018-12-04] MEDS: CLOPIDOGREL 75 MG TABLET PO SCH (13:57)
[2018-12-04] MEDS: FLUTICASONE 50 MCG NASAL SPRAY 16 GM BOTTLE BOTH NARES SCH ×2 (13:58→21:48)
[2018-12-04] MEDS: ZINC OXIDE PASTE 113 GM TUBE TOP SCH ×2 (13:59→21:48)
[2018-12-04] MEDS: INSULIN REGULAR 100 UNIT/ML SUBCUT SCH ×3 (14:01→21:41)
[2018-12-04] MEDS: DEXT 5% NACL 0.45% KCL 40 MEQ 40 MEQ/1,000 ML BAG IV SCH (14:12)
[2018-12-04] MEDS: MAGNESIUM CHLORIDE 64 MG TABLET PO SCH (14:13)
[2018-12-04] MEDS: MONTELUKAST 10 MG TABLET PO SCH (14:16)
[2018-12-04] MEDS: LEVOFLOXACIN INJ 500 MG in PREMIX 1 EACH IV SCH (14:17)
[2018-12-04] MEDS: CETIRIZINE 10 MG TABLET PO SCH (21:48)
[2018-12-04] MEDS: ACETAMINOPHEN 325 MG TABLET PO PRN (21:51)
[2018-12-05] MEDS: ALBUTEROL/IPRATROPIUM 3 ML NEB RESP TX SCH ×4 (01:39→19:46)
[2018-12-05] MEDS: MEROPENEM 500 MG in SODIUM CHLORIDE 0.9% 100 ML IV SCH ×2 (03:10→18:19)
[2018-12-05 06:12] LABS: Albumin 1.6 G/DL (3.4-5.0); Bilirubin,Total 0.9 MG/DL (0.2-1.0); Calcium 8.2 MG/DL (8.5-10.1); Osmolality,Calculated 279.4 MOS/KG (273-304); Potassium 4.7 MMOL/L (3.5-5.1); Total Protein 5.4 G/DL (6.4-8.3)
[2018-12-05] MEDS ORDERED: BUPIVACAINE 0.5% 50 ML VIAL ONE (07:01)
[2018-12-05] MEDS ORDERED: LIDOCAINE 1%/EPI INJ 20 ML VIAL ONE (07:01)
[2018-12-05] MEDS: DEXT 5% NACL 0.45% KCL 40 MEQ 40 MEQ/1,000 ML BAG IV SCH ×3 (07:53→18:07)
[2018-12-05] MEDS ORDERED: MIDAZOLAM 2 MG/2 ML VIAL ONE (08:44)
[2018-12-05] MEDS: FLUTICASONE 50 MCG NASAL SPRAY 16 GM BOTTLE BOTH NARES SCH ×2 (08:55→21:31)
[2018-12-05] MEDS: INSULIN REGULAR 100 UNIT/ML SUBCUT SCH ×4 (16:28→21:31)
[2018-12-05] MEDS: GEMFIBROZIL 600 MG TABLET PO SCH ×2 (16:29→17:15)
[2018-12-05] MEDS: ASPIRIN CHEW 81 MG TABLET PO SCH (16:30)
[2018-12-05] MEDS: NEBIVOLOL 5 MG TABLET PO SCH (16:30)
[2018-12-05] MEDS: ZINC OXIDE PASTE 113 GM TUBE TOP SCH ×2 (16:31→21:31)
[2018-12-05] MEDS: DOCUSATE SODIUM 100 MG CAPSULE PO SCH (16:31)
[2018-12-05] MEDS: ISOSORBIDE MONONITRATE 60 MG TABLET PO SCH (16:34)
[2018-12-05] MEDS: LANSOPRAZOLE ODT 30 MG TABLET PER TUBE SCH (16:35)
[2018-12-05] MEDS: RANOLAZINE 500 MG TABLET PO SCH ×2 (16:35→21:31)
[2018-12-05] MEDS: CLOPIDOGREL 75 MG TABLET PO SCH (16:35)
[2018-12-05] MEDS: CHOLECALCIFEROL 1,000 UNIT TABLET PO SCH (16:36)
[2018-12-05] MEDS: MONTELUKAST 10 MG TABLET PO SCH (16:36)
[2018-12-05] MEDS: ASCORBIC ACID 500 MG TABLET PO SCH ×2 (16:38→21:31)
[2018-12-05] MEDS: MAGNESIUM CHLORIDE 64 MG TABLET PO SCH (16:39)
[2018-12-05] MEDS: ACETAMINOPHEN 325 MG TABLET PO PRN ×2 (17:14→21:38)
[2018-12-05] MEDS: LEVOFLOXACIN INJ 500 MG in PREMIX 1 EACH IV SCH (21:28)
[2018-12-05] MEDS: CHOLESTYRAMINE 4 GM PACK PO SCH (21:31)
[2018-12-05] MEDS: CETIRIZINE 10 MG TABLET PO SCH (21:31)
[2018-12-06] MEDS: ALBUTEROL/IPRATROPIUM 3 ML NEB RESP TX SCH ×4 (00:48→19:04)
[2018-12-06 03:20] LABS: Albumin 1.6 G/DL (3.4-5.0); Bilirubin,Total 0.6 MG/DL (0.2-1.0); Calcium 7.6 MG/DL (8.5-10.1); Osmolality,Calculated 280.4 MOS/KG (273-304); Potassium 4.3 MMOL/L (3.5-5.1); Total Protein 5.2 G/DL (6.4-8.3)
[2018-12-06] MEDS: DOCUSATE SODIUM 100 MG CAPSULE PO SCH ×2 (04:06→11:19)
[2018-12-06] MEDS: MEROPENEM 500 MG in SODIUM CHLORIDE 0.9% 100 ML IV SCH (04:06)
[2018-12-06] MEDS: DEXT 5% NACL 0.45% KCL 40 MEQ 40 MEQ/1,000 ML BAG IV SCH ×2 (04:07→21:30)
[2018-12-06] MEDS: INSULIN REGULAR 100 UNIT/ML SUBCUT SCH ×4 (11:16→21:23)
[2018-12-06] MEDS: ISOSORBIDE MONONITRATE 60 MG TABLET PO SCH (11:16)
[2018-12-06] MEDS: MONTELUKAST 10 MG TABLET PO SCH (11:17)
[2018-12-06] MEDS: NEBIVOLOL 5 MG TABLET PO SCH (11:17)
[2018-12-06] MEDS: GEMFIBROZIL 600 MG TABLET PO SCH (11:17)
[2018-12-06] MEDS: CHOLECALCIFEROL 1,000 UNIT TABLET PO SCH (11:17)
[2018-12-06] MEDS: RANOLAZINE 500 MG TABLET PO SCH ×2 (11:17→21:22)
[2018-12-06] MEDS: ASCORBIC ACID 500 MG TABLET PO SCH ×2 (11:18→21:22)
[2018-12-06] MEDS: CLOPIDOGREL 75 MG TABLET PO SCH (11:19)
[2018-12-06] MEDS: ASPIRIN CHEW 81 MG TABLET PO SCH (11:19)
[2018-12-06] MEDS: ZINC OXIDE PASTE 113 GM TUBE TOP SCH ×2 (11:19→21:26)
[2018-12-06] MEDS: CHOLESTYRAMINE 4 GM PACK PO SCH ×2 (11:19→21:23)
[2018-12-06] MEDS: MAGNESIUM CHLORIDE 64 MG TABLET PO SCH (11:19)
[2018-12-06] MEDS: FLUTICASONE 50 MCG NASAL SPRAY 16 GM BOTTLE BOTH NARES SCH ×2 (11:20→21:25)
[2018-12-06] MEDS: LANSOPRAZOLE ODT 30 MG TABLET PER TUBE SCH (11:28)
[2018-12-06] MEDS: LEVOFLOXACIN INJ 500 MG in PREMIX 1 EACH IV SCH (20:21)
[2018-12-06] MEDS: ACETAMINOPHEN 325 MG TABLET PO PRN (21:22)
[2018-12-06] MEDS: CETIRIZINE 10 MG TABLET PO SCH (21:23)
[2018-12-07] MEDS: ALBUTEROL/IPRATROPIUM 3 ML NEB RESP TX SCH ×4 (00:55→19:40)
[2018-12-07 05:26] LABS: Basophils % 1.1 % (0.0-0.8); Eosinophils # 0.1 10*3/uL (0.0-0.87); Eosinophils % 2.9 % (0.00-10.9); Hematocrit 32.5 VOL% (42.0-52.0); Hemoglobin 10.4 GM/DL (14.0-18.0); Immature Granulocytes % 1.7 %; Immature Granulocytes Absolute 0.06 #; Lymphocytes # 0.8 10*3/uL (1.4-4.0); Lymphocytes % 23.6 % (21.2-54.2); Mean Corpuscular Hemoglobin 31 PG (27-34); Mean Platelet Volume 9.6 FL (9.6-12.0); Monocytes # 0.4 10*3/uL (0.11-0.8); Monocytes % 11.8 % (1.7-12.7); Neutrophils # 2.1 10*3/uL (1.4-7.4); Neutrophils % 58.9 % (38.7-73.9); Platelet Count 208 T/CUMM (130-400); Red Blood Count 3.35 MC/CUMM (3.8-5.5); Red Cell Distribution Width 15.4 % (9.3-17.3); White Blood Count 3.5 T/CUMM (4-12)
[2018-12-07 05:48] LABS: Albumin 1.7 G/DL (3.4-5.0); Bilirubin,Total 0.4 MG/DL (0.2-1.0); Calcium 8.1 MG/DL (8.5-10.1); Osmolality,Calculated 277.4 MOS/KG (273-304); Potassium 4.7 MMOL/L (3.5-5.1); Total Protein 5.6 G/DL (6.4-8.3)
[2018-12-07] MEDS: DOCUSATE SODIUM 100 MG CAPSULE PO SCH ×3 (06:59→21:57)
[2018-12-07] MEDS: CHOLESTYRAMINE 4 GM PACK PO SCH (10:04)
[2018-12-07] MEDS: RANOLAZINE 500 MG TABLET PO SCH ×2 (10:04→21:57)
[2018-12-07] MEDS: LANSOPRAZOLE ODT 30 MG TABLET PER TUBE SCH (10:04)
[2018-12-07] MEDS: ASCORBIC ACID 500 MG TABLET PO SCH ×2 (10:04→21:57)
[2018-12-07] MEDS: CLOPIDOGREL 75 MG TABLET PO SCH (10:05)
[2018-12-07] MEDS: CHOLECALCIFEROL 1,000 UNIT TABLET PO SCH (10:05)
[2018-12-07] MEDS: NEBIVOLOL 5 MG TABLET PO SCH (10:05)
[2018-12-07] MEDS: INSULIN REGULAR 100 UNIT/ML SUBCUT SCH ×4 (10:05→21:58)
[2018-12-07] MEDS: MONTELUKAST 10 MG TABLET PO SCH (10:05)
[2018-12-07] MEDS: MAGNESIUM CHLORIDE 64 MG TABLET PO SCH (10:05)
[2018-12-07] MEDS: ASPIRIN CHEW 81 MG TABLET PO SCH (10:05)
[2018-12-07] MEDS: ISOSORBIDE MONONITRATE 60 MG TABLET PO SCH (10:05)
[2018-12-07] MEDS: ZINC OXIDE PASTE 113 GM TUBE TOP SCH ×2 (10:06→21:58)
[2018-12-07] MEDS: FLUTICASONE 50 MCG NASAL SPRAY 16 GM BOTTLE BOTH NARES SCH ×2 (10:06→21:58)
[2018-12-07] MEDS: LOSARTAN/HCTZ 50-12.5 MG TABLET PO SCH (17:36)
[2018-12-07] MEDS: LEVOFLOXACIN INJ 500 MG in PREMIX 1 EACH IV SCH (17:36)
[2018-12-07] MEDS: DEXT 5% NACL 0.45% KCL 40 MEQ 40 MEQ/1,000 ML BAG IV SCH ×3 (17:38→17:40)
[2018-12-07] MEDS: FUROSEMIDE 20 MG TABLET PO SCH (18:43)
[2018-12-07] MEDS ORDERED: FUROSEMIDE 40 MG/4 ML VIAL IV ONE (18:54)
[2018-12-07] MEDS: CETIRIZINE 10 MG TABLET PO SCH (21:57)
[2018-12-08] MEDS: ALBUTEROL/IPRATROPIUM 3 ML NEB RESP TX SCH ×4 (00:30→19:38)
[2018-12-08 05:15] LABS: Basophils # 0.1 10*3/uL (0.0-0.2); Basophils % 1.2 % (0.0-0.8); Eosinophils # 0.1 10*3/uL (0.0-0.87); Eosinophils % 3.2 % (0.00-10.9); Hematocrit 33.4 VOL% (42.0-52.0); Hemoglobin 10.7 GM/DL (14.0-18.0); Immature Granulocytes % 0.7 %; Immature Granulocytes Absolute 0.03 #; Lymphocytes # 0.9 10*3/uL (1.4-4.0); Lymphocytes % 21.7 % (21.2-54.2); Mean Corpuscular Hemoglobin 31 PG (27-34); Mean Corpuscular Volume 97.4 FL (87-102); Monocytes # 0.4 10*3/uL (0.11-0.8); Neutrophils # 2.6 10*3/uL (1.4-7.4); Neutrophils % 64.2 % (38.7-73.9); Platelet Count 234 T/CUMM (130-400); Red Blood Count 3.43 MC/CUMM (3.8-5.5); Red Cell Distribution Width 15.4 % (9.3-17.3)
[2018-12-08 05:29] LABS: Bilirubin,Total 0.6 MG/DL (0.2-1.0); Calcium 8.7 MG/DL (8.5-10.1); Osmolality,Calculated 270.8 MOS/KG (273-304); Potassium 4.4 MMOL/L (3.5-5.1)
[2018-12-08 06:01] LABS: Platelet Estimate Adequate; Polychromasia Few
[2018-12-08] MEDS: INSULIN REGULAR 100 UNIT/ML SUBCUT SCH ×4 (09:51→21:16)
[2018-12-08] MEDS: MONTELUKAST 10 MG TABLET PO SCH (09:51)
[2018-12-08] MEDS: CHOLECALCIFEROL 1,000 UNIT TABLET PO SCH (09:51)
[2018-12-08] MEDS: NEBIVOLOL 5 MG TABLET PO SCH (09:51)
[2018-12-08] MEDS: LOSARTAN/HCTZ 50-12.5 MG TABLET PO SCH (09:51)
[2018-12-08] MEDS: MAGNESIUM CHLORIDE 64 MG TABLET PO SCH (09:51)
[2018-12-08] MEDS: FUROSEMIDE 40 MG TABLET PO SCH (09:51)
[2018-12-08] MEDS: ASCORBIC ACID 500 MG TABLET PO SCH ×2 (09:52→21:15)
[2018-12-08] MEDS: ISOSORBIDE MONONITRATE 60 MG TABLET PO SCH (09:52)
[2018-12-08] MEDS: RANOLAZINE 500 MG TABLET PO SCH ×2 (09:52→21:15)
[2018-12-08] MEDS: DOCUSATE SODIUM 100 MG CAPSULE PO SCH ×2 (09:52→21:17)
[2018-12-08] MEDS: ASPIRIN CHEW 81 MG TABLET PO SCH (09:52)
[2018-12-08] MEDS: LANSOPRAZOLE ODT 30 MG TABLET PER TUBE SCH (09:52)
[2018-12-08] MEDS: ZINC OXIDE PASTE 113 GM TUBE TOP SCH ×2 (09:53→21:16)
[2018-12-08] MEDS: FLUTICASONE 50 MCG NASAL SPRAY 16 GM BOTTLE BOTH NARES SCH ×2 (09:53→21:16)
[2018-12-08] MEDS: CLOPIDOGREL 75 MG TABLET PO SCH (10:00)
[2018-12-08] MEDS: FUROSEMIDE 20 MG TABLET PO SCH (18:29)
[2018-12-08] MEDS: LEVOFLOXACIN INJ 500 MG in PREMIX 1 EACH IV SCH (18:29)
[2018-12-08] MEDS: CETIRIZINE 10 MG TABLET PO SCH (21:15)
[2018-12-09] MEDS: ALBUTEROL/IPRATROPIUM 3 ML NEB RESP TX SCH ×4 (00:50→19:54)
[2018-12-09 05:13] LABS: Basophils % 1.2 % (0.0-0.8); Eosinophils % 4.4 % (0.00-10.9); Hematocrit 31.9 VOL% (42.0-52.0); Hemoglobin 10.5 GM/DL (14.0-18.0); Immature Granulocytes % 0.7 %; Lymphocytes # 0.9 10*3/uL (1.4-4.0); Lymphocytes % 22.4 % (21.2-54.2); Mean Corpuscular HGB Conc 32.9 GM/DL (32-36); Mean Corpuscular Hemoglobin 31 PG (27-34); Mean Corpuscular Volume 94.9 FL (87-102); Mean Platelet Volume 9.1 FL (9.6-12.0); Monocytes # 0.4 10*3/uL (0.11-0.8); Neutrophils # 2.5 10*3/uL (1.4-7.4); Neutrophils % 61.3 % (38.7-73.9); Platelet Count 238 T/CUMM (130-400); Red Blood Count 3.36 MC/CUMM (3.8-5.5); Red Cell Distribution Width 15.4 % (9.3-17.3); White Blood Count 4.1 T/CUMM (4-12)
[2018-12-09 05:14] LABS: Basophils # 0.1 10*3/uL (0.0-0.2); Eosinophils # 0.2 10*3/uL (0.0-0.87); Immature Granulocytes Absolute 0.03 #
[2018-12-09 05:27] LABS: Calcium 8.5 MG/DL (8.5-10.1); Osmolality,Calculated 279.3 MOS/KG (273-304); Potassium 3.3 MMOL/L (3.5-5.1)
[2018-12-09] MEDS: INSULIN REGULAR 100 UNIT/ML SUBCUT SCH ×4 (08:20→21:24)
[2018-12-09] MEDS ORDERED: MAGNESIUM SULF RIDER 2 GM in PREMIX 1 EACH IV PRN (08:31)
[2018-12-09] MEDS ORDERED: MAGNESIUM SULF RIDER 4 GM in PREMIX 1 EACH IV PRN (08:31)
[2018-12-09] MEDS: ZINC OXIDE PASTE 113 GM TUBE TOP SCH ×2 (09:16→21:26)
[2018-12-09] MEDS: MAGNESIUM CHLORIDE 64 MG TABLET PO SCH (09:16)
[2018-12-09] MEDS: CHOLECALCIFEROL 1,000 UNIT TABLET PO SCH (09:16)
[2018-12-09] MEDS: ASCORBIC ACID 500 MG TABLET PO SCH ×2 (09:16→21:24)
[2018-12-09] MEDS: DOCUSATE SODIUM 100 MG CAPSULE PO SCH ×2 (09:17→21:27)
[2018-12-09] MEDS: ISOSORBIDE MONONITRATE 60 MG TABLET PO SCH (09:17)
[2018-12-09] MEDS: FUROSEMIDE 40 MG TABLET PO SCH (09:17)
[2018-12-09] MEDS: LOSARTAN/HCTZ 50-12.5 MG TABLET PO SCH (09:17)
[2018-12-09] MEDS: RANOLAZINE 500 MG TABLET PO SCH ×2 (09:17→21:24)
[2018-12-09] MEDS: LANSOPRAZOLE ODT 30 MG TABLET PER TUBE SCH (09:17)
[2018-12-09] MEDS: FLUTICASONE 50 MCG NASAL SPRAY 16 GM BOTTLE BOTH NARES SCH ×2 (09:17→21:26)
[2018-12-09] MEDS: CLOPIDOGREL 75 MG TABLET PO SCH (09:17)
[2018-12-09] MEDS: MONTELUKAST 10 MG TABLET PO SCH (09:17)
[2018-12-09] MEDS: NEBIVOLOL 5 MG TABLET PO SCH (09:18)
[2018-12-09] MEDS: ASPIRIN CHEW 81 MG TABLET PO SCH (09:18)
[2018-12-09] MEDS ORDERED: ETOMIDATE 40 MG/20 ML VIAL IV ONE (10:00)
[2018-12-09] MEDS ORDERED: LIDOCAINE 2% 5 ML VIAL ONE (10:00)
[2018-12-09] MEDS: FUROSEMIDE 20 MG TABLET PO SCH (19:35)
[2018-12-09] MEDS: CETIRIZINE 10 MG TABLET PO SCH (21:24)
[2018-12-09] MEDS: POTASSIUM CHLORIDE 20 MEQ TABLET PO PRN (23:23)
[2018-12-10] MEDS: ALBUTEROL/IPRATROPIUM 3 ML NEB RESP TX SCH ×3 (00:49→16:21)
[2018-12-10] MEDS: POTASSIUM CHLORIDE 20 MEQ TABLET PO PRN ×2 (01:19→03:10)
[2018-12-10 04:28] LABS: Eosinophils # 0.2 10*3/uL (0.0-0.87); Eosinophils % 4.8 % (0.00-10.9); Hematocrit 32.2 VOL% (42.0-52.0); Hemoglobin 10.4 GM/DL (14.0-18.0); Immature Granulocytes % 0.7 %; Immature Granulocytes Absolute 0.03 #; Lymphocytes % 22.6 % (21.2-54.2); Mean Corpuscular HGB Conc 32.3 GM/DL (32-36); Mean Corpuscular Hemoglobin 31 PG (27-34); Mean Corpuscular Volume 95.5 FL (87-102); Monocytes # 0.4 10*3/uL (0.11-0.8); Monocytes % 9.3 % (1.7-12.7); Neutrophils # 2.6 10*3/uL (1.4-7.4); Neutrophils % 61.6 % (38.7-73.9); Platelet Count 244 T/CUMM (130-400); Red Blood Count 3.37 MC/CUMM (3.8-5.5); Red Cell Distribution Width 15.2 % (9.3-17.3); White Blood Count 4.2 T/CUMM (4-12)
[2018-12-10 04:51] LABS: Bilirubin,Total 0.9 MG/DL (0.2-1.0); Calcium 8.5 MG/DL (8.5-10.1); Osmolality,Calculated 276.4 MOS/KG (273-304); Potassium 3.3 MMOL/L (3.5-5.1); Total Protein 5.5 G/DL (6.4-8.3)
[2018-12-10] MEDS ORDERED: LOSARTAN 25 MG TABLET PO SCH (09:00)
[2018-12-10] MEDS: ASPIRIN CHEW 81 MG TABLET PO SCH (10:48)
[2018-12-10] MEDS: RANOLAZINE 500 MG TABLET PO SCH (10:48)
[2018-12-10] MEDS: ISOSORBIDE MONONITRATE 60 MG TABLET PO SCH (10:48)
[2018-12-10] MEDS: NEBIVOLOL 5 MG TABLET PO SCH (10:49)
[2018-12-10] MEDS: MONTELUKAST 10 MG TABLET PO SCH (10:49)
[2018-12-10] MEDS: ASCORBIC ACID 500 MG TABLET PO SCH (10:49)
[2018-12-10] MEDS: LANSOPRAZOLE ODT 30 MG TABLET PER TUBE SCH (10:49)
[2018-12-10] MEDS: DOCUSATE SODIUM 100 MG CAPSULE PO SCH (10:49)
[2018-12-10] MEDS: MAGNESIUM CHLORIDE 64 MG TABLET PO SCH (10:49)
[2018-12-10] MEDS: FUROSEMIDE 40 MG TABLET PO SCH (10:49)
[2018-12-10] MEDS: CLOPIDOGREL 75 MG TABLET PO SCH (10:50)
[2018-12-10] MEDS: ZINC OXIDE PASTE 113 GM TUBE TOP SCH (10:50)
[2018-12-10] MEDS: CHOLECALCIFEROL 1,000 UNIT TABLET PO SCH (10:50)
[2018-12-10] MEDS: FLUTICASONE 50 MCG NASAL SPRAY 16 GM BOTTLE BOTH NARES SCH (10:51)
[2018-12-10] MEDS: INSULIN REGULAR 100 UNIT/ML SUBCUT SCH ×3 (10:51→18:58)
[2018-12-10 14:43] VITALS: BP 134/84
== END 2018-12-10 14:00 | DRG 981 ==
LOC: EDUNIT# → N.ED 13:14 → SUATTDRO 15:40 → N.EDINP 15:40 → N.4E 16:25 → N.ICU 11-29 15:38 → N.4E 12-02 10:55
PROVIDERS: ADMIT Internal Medicine Geriatric Medicine; ATTEND Internal Medicine

== ENCOUNTER 2021-01-29 07:12 | Inpatient (IN) ==
[2021-01-29] MEDS: LACTATED RINGERS 1,000 ML IV SCH (08:05)
[2021-01-29 08:09] LABS: Basophils % 0.3 % (0.0-0.8); Eosinophils # 0.2 10*3/uL (0.0-0.87); Eosinophils % 1.9 % (0.00-10.9); Hematocrit 33.3 VOL% (42.0-52.0); Hemoglobin 10.8 GM/DL (14.0-18.0); Immature Granulocytes % 0.9 %; Immature Granulocytes Absolute 0.08 #; Lymphocytes # 1.3 10*3/uL (1.4-4.0); Lymphocytes % 14.7 % (21.2-54.2); Mean Corpuscular HGB Conc 32.4 GM/DL (32-36); Mean Corpuscular Volume 99.4 FL (87-102); Mean Platelet Volume 9.8 FL (9.6-12.0); Monocytes % 8.1 % (1.7-12.7); Neutrophils % 74.1 % (38.7-73.9); Platelet Count 117 T/CUMM (130-400); Red Blood Count 3.35 MC/CUMM (3.8-5.5); Red Cell Distribution Width 18.9 % (9.3-17.3); White Blood Count 8.6 T/CUMM (4-12)
[2021-01-29 08:19] LABS: INR 1.7; PT Patient Result 17.4 SECS (9.8-11.9)
[2021-01-29] MEDS ORDERED: LIDOCAINE 2% 5 ML VIAL ONE (09:12)
[2021-01-29] MEDS ORDERED: propofoL 200 MG/20 ML VIAL IV ONE (09:12)
[2021-01-29] MEDS ORDERED: ETOMIDATE 20 MG/10 ML VIAL IV ONE (09:12)
[2021-01-29] MEDS ORDERED: hydrALAZINE 20 MG/1 ML VIAL IV PRN (10:34)
[2021-01-29] MEDS ORDERED: GLUCAGON 1 MG VIAL IM PRN (10:34)
[2021-01-29] MEDS ORDERED: LACTULOSE 20 GM/30 ML UDCUP PO PRN (10:34)
[2021-01-29] MEDS ORDERED: PHENOL 1.4% THROAT SPRAY 177 ML BOTTLE PO PRN (10:46)
[2021-01-29] MEDS ORDERED: ENOXAPARIN 40 MG/0.4 ML SYRINGE SUBCUT SCH (13:00)
[2021-01-29 13:43] LABS: Albumin 1.8 G/DL (3.4-5.0); Bilirubin,Total 2.3 MG/DL (0.2-1.0); Calcium 8.9 MG/DL (8.5-10.1); Osmolality,Calculated 268.7 MOS/KG (273-304); Potassium 5.7 MMOL/L (3.5-5.1); Total Protein 5.7 G/DL (6.4-8.2)
[2021-01-29] MEDS: SODIUM CHLORIDE 0.9% 1,000 ML IV SCH (15:45)
[2021-01-29] MEDS ORDERED: SODIUM POLYSTYRENE SULFATE 15 GM/60 ML BOTTLE PO ONE (15:54)
[2021-01-30 04:43] LABS: Basophils % 0.4 % (0.0-0.8); Eosinophils # 0.1 10*3/uL (0.0-0.87); Eosinophils % 0.7 % (0.00-10.9); Hematocrit 30.5 VOL% (42.0-52.0); Hemoglobin 10.1 GM/DL (14.0-18.0); Immature Granulocytes % 0.9 %; Immature Granulocytes Absolute 0.08 #; Lymphocytes # 1.5 10*3/uL (1.4-4.0); Lymphocytes % 16.3 % (21.2-54.2); Mean Corpuscular HGB Conc 33.1 GM/DL (32-36); Mean Corpuscular Volume 96.5 FL (87-102); Mean Platelet Volume 9.9 FL (9.6-12.0); Monocytes % 7.6 % (1.7-12.7); Neutrophils % 74.1 % (38.7-73.9); Platelet Count 102 T/CUMM (130-400); Red Blood Count 3.16 MC/CUMM (3.8-5.5); White Blood Count 8.9 T/CUMM (4-12)
[2021-01-30] MEDS: SODIUM CHLORIDE 0.9% 1,000 ML IV SCH ×2 (04:54→21:03)
[2021-01-30 04:59] LABS: Calcium 8.4 MG/DL (8.5-10.1); Osmolality,Calculated 275.2 MOS/KG (273-304); Potassium 5.4 MMOL/L (3.5-5.1)
[2021-01-30] MEDS ORDERED: MAGNESIUM SULF RIDER 2 GM in PREMIX 1 EACH IV ONE (07:13)
[2021-01-30] MEDS ORDERED: INSULIN REGULAR 10 UNIT, CALCIUM GLUCONATE 1,000 MG in DEXTROSE 10% 250 ML IV ONE (07:20)
[2021-01-30] MEDS: LACTATED RINGERS 1,000 ML IV SCH (09:09)
[2021-01-30] MEDS: PANTOPRAZOLE 40 MG TABLET PO SCH (09:09)
[2021-01-31 05:30] LABS: Basophils % 0.2 % (0.0-0.8); Eosinophils # 0.1 10*3/uL (0.0-0.87); Eosinophils % 1.2 % (0.00-10.9); Hematocrit 27.4 VOL% (42.0-52.0); Hemoglobin 9.4 GM/DL (14.0-18.0); Immature Granulocytes % 1.2 %; Immature Granulocytes Absolute 0.11 #; Lymphocytes # 1.4 10*3/uL (1.4-4.0); Lymphocytes % 15.7 % (21.2-54.2); Mean Corpuscular HGB Conc 34.3 GM/DL (32-36); Mean Corpuscular Volume 95.8 FL (87-102); Mean Platelet Volume 9.8 FL (9.6-12.0); Neutrophils % 73.7 % (38.7-73.9); Platelet Count 91 T/CUMM (130-400); Red Blood Count 2.86 MC/CUMM (3.8-5.5); Red Cell Distribution Width 19.7 % (9.3-17.3); White Blood Count 9.1 T/CUMM (4-12)
[2021-01-31 05:51] LABS: Calcium 8.8 MG/DL (8.5-10.1); Osmolality,Calculated 269.5 MOS/KG (273-304); Potassium 5.4 MMOL/L (3.5-5.1)
[2021-01-31] MEDS: LACTATED RINGERS 1,000 ML IV SCH ×2 (08:02→09:00)
[2021-01-31] MEDS: SODIUM CHLORIDE 0.9% 1,000 ML IV SCH ×2 (08:16→16:22)
[2021-01-31] MEDS: DEXTROSE 50% 25 GM/50 ML VIAL IV PRN (08:17)
[2021-01-31 08:32] LABS: INR 1.5; PT Patient Result 16.2 SECS (9.8-11.9)
[2021-01-31] MEDS ORDERED: LIDOCAINE 2% 5 ML VIAL ONE ×2 (09:06→14:08)
[2021-01-31] MEDS ORDERED: propofoL 200 MG/20 ML VIAL IV ONE ×2 (09:06→14:08)
[2021-01-31] MEDS ORDERED: ETOMIDATE 20 MG/10 ML VIAL IV ONE (09:06)
[2021-01-31] MEDS: PANTOPRAZOLE 40 MG TABLET PO SCH (09:40)
[2021-01-31] MEDS ORDERED: INSULIN REGULAR 10 UNIT, CALCIUM GLUCONATE 1,000 MG in DEXTROSE 10% 250 ML IV ONE (10:25)
[2021-01-31] MEDS ORDERED: MIDAZOLAM 2 MG/2 ML VIAL ONE (13:01)
[2021-01-31] MEDS ORDERED: KETAMINE 500 MG/10 ML VIAL ONE (13:01)
[2021-01-31] MEDS ORDERED: fentaNYL 100 MCG/2 ML VIAL ONE (13:01)
[2021-01-31] MEDS ORDERED: TISSUE ADHESIVE 1 EACH APPLICATOR TOP ONE (13:02)
[2021-01-31] MEDS ORDERED: LIDOCAINE 1%/EPI INJ 20 ML VIAL ONE (13:02)
[2021-01-31] MEDS ORDERED: BUPIVACAINE MPF 0.25% 30 ML VIAL ONE (13:02)
[2021-01-31] MEDS ORDERED: HEPARIN 5,000 UNIT/1 ML VIAL ONE (13:02)
[2021-01-31] MEDS ORDERED: DEXTROSE 50% 25 GM/50 ML VIAL IV ONE (13:17)
[2021-01-31] MEDS ORDERED: PHENYLEPHRINE 1 MG/10 ML SYRINGE IV ONE (14:08)
[2021-01-31] MEDS ORDERED: SODIUM CHLORIDE 0.9% 250 ML IV ONE (14:08)
[2021-02-01 05:56] LABS: Basophils % 0.1 % (0.0-0.8); Eosinophils # 0.1 10*3/uL (0.0-0.87); Eosinophils % 1.3 % (0.00-10.9); Hematocrit 28.4 VOL% (42.0-52.0); Hemoglobin 9.1 GM/DL (14.0-18.0); Immature Granulocytes Absolute 0.09 #; Lymphocytes # 1.5 10*3/uL (1.4-4.0); Mean Corpuscular Volume 101.1 FL (87-102); Mean Platelet Volume 9.8 FL (9.6-12.0); Monocytes % 8.8 % (1.7-12.7); Neutrophils % 71.8 % (38.7-73.9); Platelet Count 99 T/CUMM (130-400); Red Blood Count 2.81 MC/CUMM (3.8-5.5); Red Cell Distribution Width 20.2 % (9.3-17.3); White Blood Count 8.6 T/CUMM (4-12)
[2021-02-01] MEDS: SODIUM CHLORIDE 0.9% 1,000 ML IV SCH (06:03)
[2021-02-01 06:11] LABS: Calcium 8.7 MG/DL (8.5-10.1); Potassium 5.1 MMOL/L (3.5-5.1)
[2021-02-01 06:13] LABS: Osmolality,Calculated 268.4 MOS/KG (273-304)
[2021-02-01 06:14] LABS: Hypochromasia 1+; Microcytosis 1+; Platelet Estimate Decreased
[2021-02-01] MEDS: DEXTROSE 50% 25 GM/50 ML VIAL IV PRN (06:29)
[2021-02-01] MEDS: DEXTROSE 5% 1,000 ML IV SCH ×2 (07:28→20:58)
[2021-02-01] MEDS: LACTATED RINGERS 1,000 ML IV SCH ×2 (08:25)
[2021-02-01] MEDS: PANTOPRAZOLE 40 MG TABLET PO SCH (09:02)
[2021-02-02] MEDS: ONDANSETRON 4 MG/2 ML VIAL IV PRN ×2 (03:11→07:48)
[2021-02-02 05:27] LABS: Basophils % 0.2 % (0.0-0.8); Eosinophils # 0.1 10*3/uL (0.0-0.87); Hematocrit 27.7 VOL% (42.0-52.0); Hemoglobin 9.2 GM/DL (14.0-18.0); Immature Granulocytes Absolute 0.11 #; Lymphocytes # 1.6 10*3/uL (1.4-4.0); Lymphocytes % 14.8 % (21.2-54.2); Mean Corpuscular HGB Conc 33.2 GM/DL (32-36); Mean Corpuscular Volume 98.6 FL (87-102); Mean Platelet Volume 9.9 FL (9.6-12.0); Monocytes % 7.7 % (1.7-12.7); Neutrophils % 75.3 % (38.7-73.9); Platelet Count 94 T/CUMM (130-400); Red Blood Count 2.81 MC/CUMM (3.8-5.5); White Blood Count 10.9 T/CUMM (4-12)
[2021-02-02 05:47] LABS: Hypochromasia Slight; Ovalocytes Slight; Platelet Estimate Decreased
[2021-02-02 05:48] LABS: Microcytosis 1+
[2021-02-02 05:55] LABS: Calcium 8.9 MG/DL (8.5-10.1); Osmolality,Calculated 267.5 MOS/KG (273-304)
[2021-02-02] MEDS ORDERED: MAGNESIUM SULF RIDER 2 GM in PREMIX 1 EACH IV ONE (07:28)
[2021-02-02] MEDS ORDERED: ONDANSETRON 4 MG/2 ML VIAL IV PRN (10:16)
[2021-02-02] MEDS ORDERED: LIDOCAINE 1%/EPI INJ 20 ML VIAL ONE (10:31)
[2021-02-02] MEDS ORDERED: BUPIVACAINE MPF 0.25% 30 ML VIAL ONE (10:31)
[2021-02-02] MEDS: PANTOPRAZOLE 40 MG TABLET PO SCH (10:49)
[2021-02-02] MEDS ORDERED: DEXMEDETOMIDINE 200 MCG/2 ML VIAL ONE (11:12)
[2021-02-02] MEDS ORDERED: fentaNYL 100 MCG/2 ML VIAL ONE (11:12)
[2021-02-02] MEDS ORDERED: ETOMIDATE 40 MG/20 ML VIAL IV ONE (11:12)
[2021-02-02] MEDS ORDERED: LIDOCAINE 2% 5 ML VIAL ONE (11:12)
[2021-02-02] MEDS ORDERED: SEVOFLURANE 1 UNIT/15 MINUTE INH ONE ×3 (11:13→13:17)
[2021-02-02] MEDS ORDERED: LACTATED RINGERS 1,000 ML IV SCH (12:00)
[2021-02-02] MEDS ORDERED: PHENYLEPHRINE 10 MG/1 ML VIAL IV ONE (12:31)
[2021-02-02] MEDS ORDERED: ROCURONIUM 50 MG/5 ML VIAL IV ONE (12:40)
[2021-02-02] MEDS ORDERED: SUGAMMADEX 200 MG/2 ML VIAL IV ONE (13:00)
[2021-02-02] MEDS ORDERED: TISSUE ADHESIVE 1 EACH APPLICATOR TOP ONE (13:10)
[2021-02-02] MEDS: LACTATED RINGERS 1,000 ML IV SCH (20:11)
[2021-02-03] MEDS: LACTATED RINGERS 1,000 ML IV SCH (00:56)
[2021-02-03 05:09] LABS: Basophils % 0.2 % (0.0-0.8); Eosinophils # 0.1 10*3/uL (0.0-0.87); Eosinophils % 0.6 % (0.00-10.9); Hematocrit 27.4 VOL% (42.0-52.0); Hemoglobin 9.1 GM/DL (14.0-18.0); Immature Granulocytes % 0.8 %; Lymphocytes # 1.6 10*3/uL (1.4-4.0); Lymphocytes % 11.9 % (21.2-54.2); Mean Corpuscular HGB Conc 33.2 GM/DL (32-36); Mean Corpuscular Volume 98.6 FL (87-102); Mean Platelet Volume 10.6 FL (9.6-12.0); Monocytes % 7.4 % (1.7-12.7); Neutrophils % 79.1 % (38.7-73.9); Platelet Count 82 T/CUMM (130-400); Red Blood Count 2.78 MC/CUMM (3.8-5.5); Red Cell Distribution Width 20.4 % (9.3-17.3); White Blood Count 13.3 T/CUMM (4-12)
[2021-02-03 05:25] LABS: Calcium 8.9 MG/DL (8.5-10.1); Osmolality,Calculated 270.2 MOS/KG (273-304); Potassium 5.7 MMOL/L (3.5-5.1)
[2021-02-03 05:26] LABS: Calcium 8.8 MG/DL (8.5-10.1); Osmolality,Calculated 268.4 MOS/KG (273-304); Potassium 5.8 MMOL/L (3.5-5.1)
[2021-02-03 06:53] LABS: Polychromasia Slight
[2021-02-03 06:54] LABS: Platelet Estimate Adequate
[2021-02-03] MEDS: DEXTROSE 5% 1,000 ML IV SCH ×3 (07:42→22:18)
[2021-02-03] MEDS: PANTOPRAZOLE 40 MG TABLET PO SCH (09:29)
[2021-02-03] MEDS ORDERED: INSULIN REGULAR 10 UNIT, CALCIUM GLUCONATE 1,000 MG in DEXTROSE 10% 250 ML IV ONE ×2 (12:00→16:20)
[2021-02-04] MEDS: ONDANSETRON 4 MG/2 ML VIAL IV PRN (03:51)
[2021-02-04 05:22] LABS: Basophils % 0.2 % (0.0-0.8); Eosinophils # 0.1 10*3/uL (0.0-0.87); Eosinophils % 0.9 % (0.00-10.9); Hematocrit 26.5 VOL% (42.0-52.0); Hemoglobin 8.8 GM/DL (14.0-18.0); Immature Granulocytes Absolute 0.13 #; Lymphocytes # 1.6 10*3/uL (1.4-4.0); Lymphocytes % 12.1 % (21.2-54.2); Mean Corpuscular HGB Conc 33.2 GM/DL (32-36); Mean Corpuscular Volume 97.8 FL (87-102); Mean Platelet Volume 10.6 FL (9.6-12.0); Monocytes % 7.1 % (1.7-12.7); Neutrophils % 78.7 % (38.7-73.9); Platelet Count 62 T/CUMM (130-400); Red Blood Count 2.71 MC/CUMM (3.8-5.5); White Blood Count 12.8 T/CUMM (4-12)
[2021-02-04 05:35] LABS: Calcium 9.3 MG/DL (8.5-10.1); Osmolality,Calculated 262.1 MOS/KG (273-304); Potassium 5.4 MMOL/L (3.5-5.1)
[2021-02-04] MEDS ORDERED: PROMETHAZINE 25 MG/1 ML VIAL IM PRN (05:56)
[2021-02-04] MEDS: LACTATED RINGERS 1,000 ML IV SCH ×3 (07:18→07:21)
[2021-02-04] MEDS: DEXTROSE 5% 1,000 ML IV SCH (07:19)
[2021-02-04] MEDS: PANTOPRAZOLE 40 MG TABLET PO SCH (09:07)
[2021-02-04] MEDS ORDERED: PANTOPRAZOLE 40 MG VIAL IV SCH (09:30)
[2021-02-04] MEDS ORDERED: SODIUM POLYSTYRENE SULFATE 15 GM/60 ML BOTTLE PO STA (10:07)
[2021-02-04] MEDS ORDERED: SODIUM CHLORIDE 0.9% 1,000 ML IV SCH (10:30)
[2021-02-04] MEDS ORDERED: MORPHINE 4 MG/1 ML VIAL IV ONE (17:36)
[2021-02-04] MEDS ORDERED: ALBUTEROL/IPRATROPIUM 3 ML NEB RESP TX SCH (17:38)
[2021-02-04 17:47] LABS: ABG Base Excess -23.9 MMOL/L (-2.5-2.5); ABG HCO3 7.5 MMOL/L (20-26); Allen Test Positive
[2021-02-04 17:52] LABS: ABG PCO2 12.3 MM HG (35-48); ABG PH 7.146 (7.35-7.45)
[2021-02-04] MEDS ORDERED: DILTIAZEM INJ 100 MG in SODIUM CHLORIDE 0.9% 100 ML IV SCH (18:00)
[2021-02-04] MEDS ORDERED: MORPHINE 4 MG/1 ML VIAL IV PRN (18:29)
[2021-02-04] MEDS ORDERED: MAGNESIUM SULF RIDER 2 GM/50 ML PREMIX IV ONE (18:30)
[2021-02-04] MEDS ORDERED: SODIUM CHLORIDE 0.9% 500 ML IV ONE (18:30)
[2021-02-04] MEDS ORDERED: SODIUM BICARB INJ 50 MEQ in DEXTROSE 5% NACL 0.45% 1,000 ML IV SCH (19:00)
[2021-02-04] MEDS ORDERED: MEROPENEM 2,000 MG in SODIUM CHLORIDE 0.9% 100 ML IV SCH (19:00)
[2021-02-04 21:56] VITALS: BP 80/49
== END 2021-02-05 02:01 | disposition expired | DRG 357 ==
LOC: N.GILAB 07:12 → N.4E 12:20 → SUATTDRO 12:20 → N.ICU 02-04 18:19 → N.4E 02-04 18:29
PROVIDERS: ADMIT Internal Medicine Gastroenterology; ATTEND Internal Medicine